=== PATIENT | female | born 1980 | race Caucasian/White ===

== ENCOUNTER 2019-03-04 11:43 | Emergency (ER) | payer SELFPAY ==
[2019-03-04 11:47] VITALS: BP 110/75; PULSE 80; RESP 20; TEMP 36.4; O2SAT 98
--- NOTE | 2019-03-04 12:44 | W.ED.DENTAL ---
HPI - Dental/Oral General: Chief complaint: Dental/Oral Stated complaint: tooth infection Time Seen by Provider: 03/04/19 12:40 History of Present Illness: HPI Narrative: Patient comes in today with complaints of left side upper and lower jaw pain. Patient has poor dentition with multiple caries and loss of teeth. Patient reports increased swelling of the gums and tenderness to them. Patient appears well. Patient appears in mild to moderate pain. Teeth map: 1. absent 2. absent 3. decay Review of Systems General: Reports: 10 or more systems reviewed and unremarkable except in HPI and below ENMT: Reports: dental pain PFSH ED PFSH: Statuses (acute, chronic, etc) shown below reflect problem list status as previously entered and may not be historically accurate Social History Smoking and tobacco status: current every day smoker Physical Exam Const: COMMON NORMALS: no apparent distress and oriented x3 GENERAL APPEARANCE: cooperative HENMT: COMMON NORMALS: normocephalic, external ears normal, EAC's normal, TM's normal bilaterally and external nose normal HEAD & SCALP: normal to inspection and normocephalic FACE & SINUS: normal facial exam NOSE: external nose normal GENERAL EAR: hearing grossly impaired EXTERNAL EAR: Yes external ears normal EXTERNAL AUDITORY CANAL: EAC's normal TYMPANIC MEMBRANE: TM's normal bilaterally MOUTH: oral and palatal mucosa normal TEETH & GINGIVA: Yes abnormal tooth and associated gingiva (multiple caries and tooth decay, redness and inflammed teeth), Yes gingiva abnormal and Yes poor dentition THROAT: posterior oropharynx normal Eye: COMMON NORMALS: PERRL and EOMs intact bilaterally PUPIL: Yes PERRL Neck/C-Spine: COMMON NORMALS: full ROM and no lymphadenopathy Lymph: LYMPHATIC: no lymphedema noted Chest: COMMONS NORMALS: inspection of chest normal and palpation of chest normal Resp: COMMON NORMALS: normal respiratory effort and clear to auscultation bilaterally AUSCULTATION: clear to auscultation bilaterally Cardio: COMMON NORMALS: regular rate and regular rhythm RATE: regular rate RHYTHM: regular rhythm GI: COMMON NORMALS: normal to inspection, nondistended, normoactive bowel sounds and non-tender : COMMON NORMALS: Yes no CVA tenderness BLADDER/KIDNEY EXAM: Yes no CVA tenderness Back/Pelvis: COMMON NORMALS: no CVA tenderness and thoracic and lumbar spine normal to inspection Extremity: COMMON NORMALS: normal to inspection GENERAL: No edema Neuro: COMMON NORMALS: oriented x3, moves all extremities and no focal motor deficits Psych: COMMON NORMALS: mental status grossly normal and cooperative Skin: COMMON NORMALS: no rashes or lesions noted GENERAL SKIN EXAM: no rashes or lesions noted Course Vital Signs: Vital signs: Vital Signs Temperature 97.6 F 03/04/19 11:47 Pulse Rate 80 03/04/19 11:47 Respiratory Rate 20 H 03/04/19 11:47 Blood Pressure 110/75 03/04/19 11:47 Pulse Oximetry 98 03/04/19 11:47 MDM - Dental/Oral MDM Narrative: Medical decision making narrative: Patient comes in today for complaints of left side dental pain. On exam we note swelling and poor dental care. Patient has no obvious or significant swelling of the posterior pharynx, airway is completely intact, and patient handle secretions well. Differential diagnosis includes all dentalgia, dental abscess, dental caries, Oseas's angina, retropharyngeal abscess. Discharge Plan Discharge Patient Disposition: Home, Self-Care Clinical Impression: Dental caries, Toothache Condition: Stable Prescriptions: New clindamycin HCl 150 mg capsule 150 mg PO Q6H 7 Days Qty: 28 RF: 0 hydrocodone-acetaminophen 5-325 mg tablet 1 tab PO Q8H PRN (Reason: pain) Qty: 7 RF: 0 Lidocaine Viscous 2 % solution 10 ml MUCOUS MEM Q4H PRN (Reason: pain) Qty: 100 RF: 0 Discharge Orders: Discharge Order (Routine); Ordered 03/04/19 Ordered By: Akash Walsh Discharge Diet: Usual diet Discharge Activity: Resume usual activity Patient Instructions: Dental Caries (ED), Toothache (ED) Activity Restrictions/Additional Instructions: Good oral care Drink plenty of water with medications Check with [facility] in [place] about dental care Follow-up with primary care for persistent treatment Return to ER for high fever, difficulty swallowing or breathing. Coding Level of Care Code ED Bowling Floor Desk Clerk for Justyna Fernandez Exam Problem Focused
[2019-03-04 13:01] VITALS: BP 110/76; PULSE 80; RESP 18; TEMP 37; O2SAT 98
== END 2019-03-04 13:03 | disposition home or self-care (01) ==
LOC: ER 16:28
PROVIDERS: Emergency Provider Nurse Practitioner Family
DX: K02.9 Dental caries, unspecified (principal); F17.210 Nicotine dependence, cigarettes, uncomplicated
CPT/HCPCS: 99281

== ENCOUNTER 2019-04-14 18:39 | Emergency (ER) | payer SELFPAY ==
[2019-04-14 18:43] VITALS: BP 116/64; PULSE 101; RESP 18; TEMP 36.6; O2SAT 98; BMI 23.6
--- NOTE | 2019-04-14 18:48 | XR_ITS ---
WS: [id number] XR chest 1V portable [id number] REASON FOR EXAM: cough FINDINGS: The heart and mediastinal interfaces are normal. The lung ruth are well-aerated. There is no pneumonia, pleural effusion, pulmonary edema, or mass e ffect. The hilum and apices are normal. No osseous abnormalities seen. XR/XR chest 1V portable [id number] IMPRESSION: Negative chest for acute findings.
[2019-04-14 18:49] VITALS: BP 109/67; PULSE 96; RESP 17; TEMP 36.4; O2SAT 98
--- NOTE | 2019-04-14 19:05 | ED_ITS ---
HPI - SOB/Dyspnea General: Chief Complaint: Shortness of Breath/Dyspnea Stated Complaint: flu s/s Time Seen by Provider: 04/14/19 18:52 History of Present Illness: HPI Narrative: Patient comes in today with cough and congestion for 3 days. Patient also concerned about her hepatitis C. Patient appears mildly unwell. Patient appears nonjaundiced. Patient appears in mild pain. MD elicited complaint: cough Review of Systems General: Reports: 10 or more systems reviewed and unremarkable except in HPI and below Const: Reports: chills and malaise Resp: Reports: non-productive cough PFSH ED PFSH: Social History Smoking and tobacco status: current every day smoker Physical Exam Const: COMMON NORMALS: no apparent distress and oriented x3 GENERAL APPEARANCE: cooperative HENMT: COMMON NORMALS: normocephalic, external ears normal, EAC's normal, TM's normal bilaterally and external nose normal HEAD & SCALP: normal to inspection and normocephalic FACE & SINUS: normal facial exam NOSE: external nose normal GENERAL EAR: hearing not grossly impaired EXTERNAL EAR: Yes external ears normal EXTERNAL AUDITORY CANAL: EAC's normal TYMPANIC MEMBRANE: TM's normal bilaterally MOUTH: oral and palatal mucosa normal THROAT: posterior oropharynx abnormal erythema Eye: COMMON NORMALS: PERRL and EOMs intact bilaterally PUPIL: Yes PERRL Neck/C-Spine: COMMON NORMALS: full ROM and no lymphadenopathy Lymph: LYMPHATIC: no lymphedema noted Chest: COMMONS NORMALS: inspection of chest normal and palpation of chest nor mal Resp: COMMON NORMALS: normal respiratory effort and clear to auscultation bilaterally AUSCULTATION: clear to auscultation bilaterally Cardio: COMMON NORMALS: regular rate and regular rhythm RATE: regular rate RHYTHM: regular rhythm GI: COMMON NORMALS: normal to inspection, nondistended, normoactive bowel sounds and non-tender : COMMON NORMALS: Yes no CVA tenderness BLADDER/KIDNEY EXAM: Yes no CVA tenderness Back/Pelvis: COMMON NORMALS: no CVA tenderness and thoracic and lumbar spine normal to inspection Extremity: COMMON NORMALS: normal to inspection GENERAL: No edema Neuro: COMMON NORMALS: oriented x3, moves all extremities and no focal motor deficits Psych: COMMON NORMALS: mental status grossly normal and cooperative Skin: COMMON NORMALS: no rashes or lesions noted GENERAL SKIN EXAM: no rashes or lesions noted Course Vital Signs: Vital signs: Vital Signs Temperature 97.5 F L 04/14/19 18:49 Pulse Rate 96 04/14/19 18:49 Respiratory Rate 17 04/14/19 18:49 Blood Pressure 109/67 04/14/19 18:49 Pulse Oximetry 98 04/14/19 18:49 MDM - SOB/Dyspnea MDM Narrative: Medical decision making narrative: Patient comes in today with complaints of cough and body aches for last 3 days. Exam notes good air mo vement throughout lung ruth with some mild bronchovascular noise. Abdomen soft nontender. Skin is warm and dry. Vital signs were normal. Differential diagnosis includes influenza, bronchitis, pneumonia. Chest x-ray noted no pneumonia. Flu test was negative. Reviewed exam with patient recommended treatment for bronchitis. Patient was given a dose of dexamethasone and will be started on doxycycline. Patient was written Promethazine DM to help with cough and given ondansetron for nausea. Patient reports understanding of care plan and need for follow-up. Lab Data: Labs: Lab Results 04/14/19 Range/Units 18:47 Influenza Type A A g Negative (Negative) POC Influenza B Ag Negative (Negative) Discharge Plan Discharge Patient Disposition: Home, Self-Care Clinical Impression: Bronchitis Condition: Stable Prescriptions: New promethazine-DM 6.25-15 mg/5 mL syrup 5 ml PO Q6H PRN (Reason: cough) Qty: 120 RF: 0 ondansetron HCl 4 mg tablet 4 mg PO Q8H PRN (Reason: nausea and vomiting) Qty: 7 RF: 0 doxycycline hyclate 100 mg capsule 100 mg PO BID 7 Days Qty: 14 RF: 0 No Action hydrocodone-acetaminophen 5-325 mg tablet 1 tab PO Q8H PRN (Reason: pain) Qty: 7 RF: 0 Lidocaine Viscous 2 % solution 10 ml MUCOUS MEM Q4H PRN (Reason: pain) Qty: 100 RF: 0 Discharge Orders: Discharge Order (Routine); Ordered 04/14/19 Ordered By: Akash Walsh Discharge Diet: Usual diet Discharge Activity: Increase activity as tolerated Patient Instructions: Acute Bronchitis (ED) Activity Restrictions/Additional Instructions: Drink plenty of fluids Activity as tolerated Stop smoking Medications as directed Follow-up with primary care in one week Coding Level of Care Code ED Cnc Service Technician for Chg Fwd Exam Comprehensive
[2019-04-14 19:18] LABS: Influenza A by IFA Negative (Negative); Influenza B by IFA Negative (Negative)
[2019-04-14] MEDS: ondansetron 4 MG Tablet PO (20:11)
[2019-04-14] MEDS: dexamethasone 10 mg/mL INJ IM (20:11)
[2019-04-14] MEDS: doxycycline 100 mg Tablet PO (20:11)
[2019-04-14 20:14] VITALS: BP 110/63; PULSE 95; RESP 17; TEMP 36.3; O2SAT 94
[2019-04-14 20:19] VITALS: BP 110/63; PULSE 95; RESP 17; TEMP 36.3; O2SAT 94
--- NOTE | 2019-04-15 15:11 | DCPLANNER ---
sourcing manager had message to speak with patient about getting a primary care physician. sourcing manager called patient, unable to speak with patient at this time, and unable to leave a voice mail for patient at this time. sourcing manager called and a recording stated that patient was unavailable at this time.
== END 2019-04-14 20:40 | disposition home or self-care (01) ==
PROVIDERS: Emergency Medicine; Emergency Provider Nurse Practitioner Family
DX: J40 Bronchitis, not specified as acute or chronic (principal); F17.200 Nicotine dependence, unspecified, uncomplicated
CPT/HCPCS: 71045; 87804; 96372; 99282; 99283; J1100; Q0162

== ENCOUNTER 2019-12-06 11:08 | Emergency (ER) | payer SELFPAY ==
[2019-12-06 11:20] VITALS: BP 102/65; PULSE 114; RESP 20; TEMP 38.5; O2SAT 95; BMI 22.6
--- NOTE | 2019-12-06 11:59 | XR_ITS ---
WS: [id number] PORTABLE CHEST HISTORY: syncope COMPARISON: 04/14/2019 Subtle area of haziness and increasing opacification in the central LEFT lung. Otherwise lungs are cl ear. Normal vasculature. No pleural effusion or pneumothorax. Cardiac size: Normal. Mediastinum/Aorta: Normal mediastinum. No osseous abnormality seen. XR/XR chest 1V portable [id number] IMPRESSION: Central LEFT lung developing pneumonitis.
[2019-12-06] MEDS: sodium chloride 0.9% 500 ML 999 ML IV (12:32)
[2019-12-06 12:52] VITALS: BP 106/71; PULSE 97; RESP 20; O2SAT 98
--- NOTE | 2019-12-06 13:00 | ED_ITS ---
HPI - COVID General: Chief Complaint: COVID symptoms Stated Complaint: fever, possible covid Time Seen by Provider: 12/06/19 11:50 Triage information: Has fever, cough or shortness of breath . No known COVID + exposure last 14 days History of Present Illness: HPI Narrative: 39-year-old female patient presents to the emergency department with complaints of fever, chills, body aches and hurting all over She reports currently on Keflex for dental abscess/pain past 5 days. She reports her spouse has been ill as well. MD complaint: has COVID symptoms Prior covid testing: no COVID 19 common symptoms: positive fever(s), chills, cough, non-productive cough, dyspnea, body aches, headache(s), throat pain, nasal congestion, nausea and vomiting; negative diarrhea COVID 19 other sytmptoms: negative chest pain Onset (ago): day(s) (4) Severity: moderate and rapidly worsening Treatment prior to arrival: acetaminophen COVID Results: SARS-CoV-2 RNA (RT-PCR) Pending 12/06/19 15:39 12/06/19 Nasal/Oral Coronavirus 2019 PCR Pending 12/06/19 12:50 12/06/19 Review of Systems General: Reports: 10 or more systems reviewed and unremarkable except in HPI and below Const: Reports: fever(s), chills and body aches Eyes: Denies: blurry vision or eye redness ENMT: Reports: throat pain, ear or mastoid pain and nasal congestion; Denies: dental pain or disequilibrium Card: Denies: chest pain, palpitations or irregular heart rhythm Resp: Reports: dyspnea, non-productive cough and chest congestion GI: Reports: nausea and vomiting; Denies: heartburn or diarrhea : Denies: difficulty voiding or dysuria Musc: Denies: back pain Skin/Breast: Denies: rash or pruritus Neuro: Reports: headache(s) Darrius/Lymph: Denies: easy bruising PFS ED PFSH: Social History Smoking and tobacco status: current every day smoker Physical Exam Const: COMMON NORMALS: no acute distress, patient oriented x3 and alert GENERAL APPEARANCE: cooperative and ill appearing NUTRITIONAL APPEARANCE: thin ORIENTATION/CONSCIOUSNESS: Yes awake, Yes oriented to person, Yes oriented to place and Yes oriented to time HENMT: COMMON NORMALS: normocephalic, external ears normal, EAC's normal, Normal external nose present and moist oral mucous membranes HEAD & SCALP: normocephalic FACE & SINUS: normal facial exam and sinuses nontender NOSE: Normal external nose present EXTERNAL EAR: Yes external ears normal EXTERNAL AUDITORY CANAL: EAC's normal MOUTH: Normal oral and palatal mucosa present THROAT: posterior oropharynx normal Eye: COMMON NORMALS: Equal, round and reactive pupils present and EOMs intact bilaterally GENERAL EYE: appearance normal, both eyes and all related structures PUPIL: Yes Equal, round and reactive pupils present Neck/C-Spine: COMMON NORMALS: full ROM and no lymphadenopathy GENERAL: Yes normal visual inspection and Yes trachea midline CERVICAL SPINE: Yes cervical ROM normal, No Cervical spine tenderness and No Paracervical muscle tenderness Lymph: LYMPHATIC: no lymphadenopathy noted Chest: COMMONS NORMALS: normal inspection of the chest Resp: COMMON NORMALS: normal respiratory effort EFFORT & INSPECTION: Yes able to speak in complete sentences and No tachypneic AUSCULTATION: diminished lung sounds (bases) bilateral Cardio: COMMON NORMALS: regular rhythm, S1 normal heart sound present, S2 normal heart sound present and Peripheral pulses 2+ throughout RHYTHM: regular rhythm HEART SOUNDS: S1 normal heart sound present and S2 normal heart sound present PERIPHERAL PULSES: Peripheral pulses 2+ throughout GI: COMMON NORMALS: Soft to palpation and non-tender INSPECTION: Yes normal to inspection PALPATION: Yes Soft to palpation : COMMON NORMALS: Yes no CVA tenderness BLADDER/KIDNEY EXAM: Yes no CVA tenderness Back/Pelvis: COMMON NORMALS: no CVA tenderness and thoracic and lumbar spine normal to inspection Extremity: COMMON NORMALS: normal to inspection and capillary refill normal Neuro: COMMON NORMALS: patient oriented x3 and no focal motor deficits SENSORIUM/ORIENTATION: Yes alert, Yes oriented to person, Yes oriented to place and Yes oriented to time Psych: COMMON NORMALS: mental status grossly normal, Normal thought process present and cooperative ACTIVITY/MOTOR BEHAVIOR: Yes appropriate eye contact THOUGHT PROCESS: Normal thought process present Skin: COMMON NORMALS: no rashes or lesions noted and turgor normal GENERAL SKIN EXAM: no rashes or lesions noted and turgor normal Course ED course: 39-year-old female patient presents to the emergency department with COVID symptoms. Chest x-ray revealed left upper lobe pneumonitis. COVID results are pending at this time. She was able to tolerate oral fluids. IV Tylenol administered with good results, she reports pain/discomfort improved, states was feeling better. Fever resolved, she will be placed on doxycycline, Tessalon Perles and Ventolin inhaler for infectious process. She agrees to follow-up with primary care provider in 2 to 3 days for reevaluation. Agrees to return to the emergency department for worsening symptoms such as difficulty breathing, inability to catch her breath or chest pain. She is advised to push fluid, stay at home and quarantine until results of COVID testing is available. She verbalized understanding. Case discussed with Dr. Avalos, chest x-ray does not appear as COVID, patient maintained oxygen saturation greater than 97% during her stay, she is advised to purchase oxygen sensor at the pharmacy and monitor her oxygen saturation at home. Patient verbalized understanding. Questions were answered, findings of chest x-ray and serology testing discussed with the patient. Vital Signs: Vital signs: Vital Signs Temperature 98.9 F 12/06/19 15:49 Pulse Rate 102 H 12/06/19 15:49 Respiratory Rate 20 H 12/06/19 15:49 Blood Pressure 106/64 12/06/19 15:49 Pulse Oximetry 97 12/06/19 15:49 MDM - COVID Lab Data Result diagrams: 12/06/19 12:50 12/06/19 12:50 Labs: Lab Results 12/06/19 12/06/19 12/06/19 Range/Units 12:50 12:50 12:50 WBC 15.4 H (4.0-10.0) 10^3/uL RBC 3.95 L (4.1-5.3) 10^6/uL Hgb 12.8 (11.5-15.3) g/dL Hct 38.0 (37.0-47.0) % MCV 96.2 (81-99) fL MCH 32.4 (28.0-34.0) pg MCHC 33.7 (30.0-36.0) g/dL RDW 13.7 (12.1-15.1) % Plt Count 241 (130-400) 10^3/cmm MPV 10.2 (7.4-10.4) fL Neut % (Auto) 76.3 % Lymph % (Auto) 13.2 % Collier % (Auto) 9.6 % Eos % (Auto) 0.1 % Baso % (Auto) 0.3 % Neut # (Auto) 11.76 H (1.8-7.7) 10^3/uL Lymph # (Auto) 2.0 (0.8-4.8) 10^3/uL Collier # (Auto) 1.5 H (0.2-0.9) 10^3/uL Eos # (Auto) 0.0 (0.0-0.8) 10^3/uL Baso # (Auto) 0.0 (0.0-0.1) 10^3/uL Nucleated RBC % (auto) 0 % Nucleated RBCs # 0.0 /100WBC D-Dimer 0.29 (0-0.59) ug/mIFEU Sodium 137 (136-145) mmol/L Potassium 3.8 (3.5-5.1) mmol/L Chloride 103 (98-107) mmol/L Carbon Dioxide 23 (22-29) mmol/L Anion Gap 14.8 (5-19) BUN 6 (6-20) mg/dL Creatinine 0.5 (0.5-0.9) mg/dL GFR Calculation 138.8 H (90-130) mL/min Glucose 114 (65-115) mg/dL Calculated Osmolality 282 L (285-295) mOsm/kg Lactate (0.5-2.2) mmol/L Calcium 9.3 (8.5-10.5) mg/dL Total Bilirubin 0.4 (0.15-1.2) mg/dL AST 30 (0-32) U/L ALT 91 H (0-33) U/L Alkaline Phosphatase 64 (35-105) IU/L Total Protein 7.3 (6.6-8.7) g/dL Albumin 4.1 (3.5-5.2) g/dL Globulin 3.2 (1.3-4.6) g/dL HCG, Qual (Negative) SARS-CoV-2 Ag (Rapid) 12/06/19 12/06/19 12/06/19 Range/Units 12:50 12:50 Unknown WBC (4.0-10.0) 10^3/uL RBC (4.1-5.3) 10^6/uL Hgb (11.5-15.3) g/dL Hct (37.0-47.0) % MCV (81-99) fL MCH (28.0-34.0) pg MCHC (30.0-36.0) g/dL RDW (12.1-15.1) % Plt Count (130-400) 10^3/cmm MPV (7.4-10.4) fL Neut % (Auto) % Lymph % (Auto) % Collier % (Auto) % Eos % (Auto) % Baso % (Auto) % Neut # (Auto) (1.8-7.7) 10^3/uL Lymph # (Auto) (0.8-4.8) 10^3/uL Collier # (Auto) (0.2-0.9) 10^3/uL Eos # (Auto) (0.0-0.8) 10^3/uL Baso # (Auto) (0.0-0.1) 10^3/uL Nucleated RBC % (auto) % Nucleated RBCs # /100WBC D-Dimer (0-0.59) ug/mIFEU Sodium (136-145) mmol/L Potassium (3.5-5.1) mmol/L Chloride (98-107) mmol/L Carbon Dioxide (22-29) mmol/L Anion Gap (5-19) BUN (6-20) mg/dL Creatinine (0.5-0.9) mg/dL GFR Calculation (90-130) mL/min Glucose (65-115) mg/dL Calculated Osmolality (285-295) mOsm/kg Lactate 0.6 (0.5-2.2) mmol/L Calcium (8.5-10.5) mg/dL Total Bilirubin (0.15-1.2) mg/dL AST (0-32) U/L ALT (0-33) U/L Alkaline Phosphatase (35-105) IU/L Total Protein (6.6-8.7) g/dL Albumin (3.5-5.2) g/dL Globulin (1.3-4.6) g/dL HCG, Qual Negative (Negative) SARS-CoV-2 Ag (Rapid) Cancelled COVID Results: SARS-CoV-2 RNA (RT-PCR) Pending 12/06/19 15:39 12/06/19 Nasal/Oral Coronavirus 2019 PCR Pending 12/06/19 12:50 12/06/19 Imaging Data CXR: Radiologist's impression: [address] [address] XRay Report Signed Patient: Frances Parr Unit #: [id number] : 1980 Age/Sex: 39 / F ADM Date: 12/06/19 Loc: ER Room/Bed: Attending Dr: Ordering Provider/Ordering MD: Brenna Reed Date of Service: 12/06/19 Procedure(s): XR chest 1V portable [id number] Accession Number(s): [id number] Report Number: [id number] WS: [id number] PORTABLE CHEST HISTORY: syncope COMPARISON: 04/14/2019 Subtle area of haziness and increasing opacification in the central LEFT lung. Otherwise lungs are clear. Normal vasculature. No pleural effusion or pneumothorax. Cardiac size: Normal. Mediastinum/Aorta: Normal mediastinum. No osseous abnormality seen. XR/XR chest 1V portable [id number] IMPRESSION: Central LEFT lung developing pneumonitis. Dictated By: Elly Thacker DO Signed By: Elly Thacker DO Signed Date/Time: 12/06/19 1309 DD/ 1308 Discharge Plan Discharge Patient Disposition: Home Clinical Impression: Suspected severe acute respiratory syndrome coronavirus 2 (SARS-CoV-2) i nfection, Suspected 2019-nCoV infection Pneumonia Qualifiers: Pneumonia type: due to unspecified organism Laterality: left Lung location: upper lobe of lung Qualified Code(s): J18.9 - Pneumonia, unspecified organism Condition: Stable Prescriptions: New Ventolin HFA 90 mcg/actuation HFA aerosol inhaler 2 puff INHALATION Q4H PRN (Reason: shortness of breath or wheezing) Qty: 18 RF: 0 doxycycline hyclate 100 mg tablet 100 mg PO BID 10 Days Qty: 20 RF: 0 benzonatate 200 mg capsule 200 mg PO TID PRN (Reason: cough) Qty: 20 RF: 0 Discharge Orders: Discharge Order (Routine); Ordered 12/06/19 Ordered By: Brenna Reed Discharge Diet: Advance as tolerated Discharge Activity: Limit activity as instructed Patient Instructions: Pneumonia (ED), Pneumonia - Viral Activity Restrictions/Additional Instructions: COVID testing is pending -you will be of covered results Return to the emergency department if you develop worsening shortness of breath, inability to catch her breath, fever that does not respond to Tylenol, or inability to tolerate fluids due to vomiting. Take doxycycline until all gone even if feeling better. Follow-up with your primary care provider in 2 to 3 days to ensure you are feeling better You may purchase an ecap-yuj-[id number] oxygen sensor to test her oxygen, normal findings are greater than 92% Return to the emergency department if your oxygen level drops below 90 to 92%. Push fluids, your body will require more fluids to help control fever Stop Keflex/cephalexin Discharge Date/Time: 12/06/19 15:51 Coding Level of Care Code ED Landscape Technician for Justyna Fernandez Exam Comprehensive
[2019-12-06 13:02] LABS: Basophils % 0.3 %; Eosinophils % 0.1 %; Hemoglobin 12.8 g/dL (11.5-15.3); Lymphocytes % 13.2 %; Mean Corpuscular HGB Conc 33.7 g/dL (30.0-36.0); Mean Corpuscular Hemoglobin 32.4 pg (28.0-34.0); Mean Corpuscular Volume 96.2 fL (81-99); Mean Platelet Volume 10.2 fL (7.4-10.4); Monocytes # 1.5 10^3/uL (0.2-0.9); Monocytes % 9.6 %; Neutrophils # 11.76 10^3/uL (1.8-7.7); Neutrophils % 76.3 %; Nucleated Red Blood Cells % 0 %; Platelet Count 241 10^3/cmm (130-400); Red Blood Count 3.95 10^6/uL (4.1-5.3); Red Cell Distribution Width 13.7 % (12.1-15.1); White Blood Count 15.4 10^3/uL (4.0-10.0)
[2019-12-06 13:13] VITALS: BP 102/68; PULSE 96; RESP 20; O2SAT 98
[2019-12-06 13:13] LABS: D Dimer 0.29 ug/mIFEU (0-0.59)
[2019-12-06 13:15] LABS: HCG, Serum Qual Negative (Negative)
[2019-12-06 13:17] LABS: Lactate (Lactic Acid level) 0.6 mmol/L (0.5-2.2)
[2019-12-06 14:05] LABS: Alanine Aminotransferase 91 U/L (0-33); Albumin Level 4.1 g/dL (3.5-5.2); Alkaline Phosphatase 64 IU/L (35-105); Anion Gap 14.8 (5-19); Aspartate Amino Transferase 30 U/L (0-32); Blood Urea Nitrogen 6 mg/dL (6-20); Calcium 9.3 mg/dL (8.5-10.5); Carbon Dioxide 23 mmol/L (22-29); Chloride 103 mmol/L (98-107); Globulin 3.2 g/dL (1.3-4.6); Glomerular Filtration Rate 138.8 mL/min (90-130); Glucose 114 mg/dL (65-115); Osmolality Calculated 282 mOsm/kg (285-295); Potassium 3.8 mmol/L (3.5-5.1); Sodium 137 mmol/L (136-145); Total Bilirubin 0.4 mg/dL (0.15-1.2); Total Protein 7.3 g/dL (6.6-8.7)
[2019-12-06 14:09] VITALS: BP 101/61; PULSE 99; RESP 20; O2SAT 98
--- NOTE | 2019-12-06 14:27 | PC.NURSE ---
Read and agree with assessment.
[2019-12-06 15:49] VITALS: BP 106/64; PULSE 102; RESP 20; TEMP 37.2; O2SAT 97
--- NOTE | 2019-12-07 08:44 | DCPLANNER ---
vegetable farm manager had message to speak with patient about getting established with a primary care physician. vegetable farm manager called phone number , was unable to speak with patient at this time, or unable to leave a voicemail for patient. A recording stated that the phone number that was called is not taking phone calls at this time.
[2019-12-07 20:08] LABS: Quest SARS-CoV-2 RNA NOT DETECTED (NOT DETECTED)
[2019-12-07 20:26] LABS: Coronavirus Lab Test PTC Negative
== END 2019-12-06 15:51 | disposition home or self-care (01) ==
PROVIDERS: Emergency Provider Nurse Practitioner Family
DX: J18.9 Pneumonia, unspecified organism (principal); F17.210 Nicotine dependence, cigarettes, uncomplicated
CPT/HCPCS: 12345; 71045; 80053; 83605; 84703; 85025; 85378; 87635; 96374; 99284; J0131; J7040

== ENCOUNTER 2020-06-30 21:11 | Inpatient (IN) | payer SELFPAY ==
[2020-06-30] VITALS (12 sets, daily range): BP systolic 97–121; BP diastolic 49–78; PULSE 128–135; RESP 16–34; TEMP 37.3–39.6; O2SAT 83–98; BMI 23.6
[2020-06-30] MEDS: LORazepam 2 mg/mL INJ 1 mL IM (21:36)
--- NOTE | 2020-06-30 21:43 | XRR_ITS ---
PROCEDURE INFORMATION: Exam: XR Chest Exam date and time: 06/30/2020 9:47 PM Age: 40 years old Clinical indication: Fever TECHNIQUE: Imaging protocol: XR of the chest. Views: 1 view. COMPARISON: [place] XR chest 1V portable [id number] 12/06/2019 1:00 PM FINDINGS: Lungs: There are multiple calcified pulmonary nodules consistent with prior granulomatous disease. Pleural spaces: Unremarkable. No pleural effusion. No pneumothorax. Heart/Mediastinum: Unremarkable. No cardiomegaly. Bones/joints: Unremarkable. XR/XR chest 1V portable [id number] IMPRESSION: No acute disease.
--- NOTE | 2020-06-30 21:45 | ECG_ITS ---
[facility] Test Date: 2020-06-30 Pat Name: Frances Parr Department: Room: Gender: Female [employer]: : 1980 Requested By: Jose Alfredo Tang Order Number: [id number] Rico MD: Zuly Doty M.D. Measurements Intervals [place] Rate: 127 P: 67 IN: 116 QRS: 47 QRSD: 84 T: 56 QT: 301 QTc: 438 Interpretive Statements SINUS TACHYCARDIA WITH SHORT IN INTERVAL ABNORMAL RHYTHM ECG No previous ECG available for comparison Electronically Signed On 07-02-2020 12:09:34 CDT by Zuly Doty M.D. [id number]
[2020-06-30] MEDS: LORazepam 2 mg/mL INJ 1 mL 0.5 MG IM (21:49)
[2020-06-30 21:52] LABS: Basophils # 0.1 10^3/uL (0.0-0.1); Basophils % 0.4 %; Hematocrit 48.7 % (37.0-47.0); Hemoglobin 14.8 g/dL (11.5-15.3); Lymphocytes # 3.8 10^3/uL (0.8-4.8); Lymphocytes % 21.9 %; Mean Corpuscular HGB Conc 30.4 g/dL (30.0-36.0); Mean Corpuscular Hemoglobin 32.8 pg (28.0-34.0); Mean Platelet Volume 10.1 fL (7.4-10.4); Monocytes # 1.9 10^3/uL (0.2-0.9); Monocytes % 11.1 %; Neutrophils # 11.54 10^3/uL (1.8-7.7); Neutrophils % 66.2 %; Nucleated Red Blood Cells % 0 %; Platelet Count 204 10^3/cmm (130-400); Red Blood Count 4.51 10^6/uL (4.1-5.3); Red Cell Distribution Width 13.8 % (12.1-15.1); White Blood Count 17.4 10^3/uL (4.0-10.0)
[2020-06-30] MEDS: acetaminophen 325 mg Tablet 650 MG PO (21:58)
[2020-06-30] MEDS: ondansetron 2 mg/ML SDV 2 mL 4 MG IVP (21:58)
[2020-06-30] MEDS: sodium chloride 0.9% 1,000 ML 999 ML IV ×2 (21:59→23:42)
[2020-06-30 22:00] LABS: HCG, Serum Qual Negative (Negative)
[2020-06-30 22:08] LABS: Lactate (Lactic Acid level) 6.7 mmol/L (0.5-2.2)
[2020-06-30 22:20] LABS: Alanine Aminotransferase 85 U/L (0-33); Albumin Level 4.4 g/dL (3.5-5.2); Alkaline Phosphatase 78 IU/L (35-105); Aspartate Amino Transferase 50 U/L (0-32); Blood Urea Nitrogen 11 mg/dL (6-20); Calcium 9.1 mg/dL (8.5-10.5); Carbon Dioxide 23 mmol/L (22-29); Chloride 94 mmol/L (98-107); Globulin 3.9 g/dL (1.3-4.6); Glomerular Filtration Rate 80.3 mL/min (90-130); Glucose 115 mg/dL (65-115); Osmolality Calculated 276 mOsm/kg (285-295); Sodium 133 mmol/L (136-145); Total Bilirubin 0.3 mg/dL (0.15-1.2); Total Protein 8.3 g/dL (6.6-8.7)
[2020-06-30 22:24] LABS: Acetaminophen < 5.0 ug/mL (10-30); Alcohol Level < 10 mg/dL (0-10); Anion Gap 20.6 (5-19); Potassium 4.6 mmol/L (3.5-5.1); Salicylate < 0.3 mg/dL (3-10)
[2020-06-30 22:25] LABS: Creatine Phosphokinase 330 U/L (26-192)
[2020-06-30 22:48] LABS: Influenza A by IFA Negative (Negative); Influenza B by IFA Negative (Negative); SARS Covid-2 Antigen Negative (Negative)
--- NOTE | 2020-06-30 23:02 | ED_ITS ---
HPI - Fever General: Chief Complaint: Fever Stated Complaint: fever and general body ache Time Seen by Provider: 06/30/20 21:15 History of Present Illness: HPI Narrative: 40-year-old female who evidently ingested an unknown substance last night. Today she developed a fever, body aches, and headache. She is a poor historian, and will report much otherwise. She presents asking for her mama. elicited complaint: fever Onset (ago): hour(s) Measured temperature: 103 F Exacerbating factors: nothing Relieving factors: nothing Associated symptoms: Reports chills, cough, headache(s), nausea and short of breath; Deny flank pain, chest pain, diarrhea, rash or vomiting Review of Systems Const: Reports: chills Card: Denies: chest pain or palpitations Resp: Reports: dyspnea and non-productive cough; Denies: productive cough GI: Reports: nausea; Denies: vomiting or diarrhea : Denies: flank pain or difficulty voiding Neuro: Reports: headache(s) PFS ED PFSH: Social History Smoking and tobacco status: current every day smoker Physical Exam Const: GENERAL APPEARANCE: well developed ORIENTATION/CONSCIOUSNESS: Yes oriented to person, Yes oriented to place and Yes oriented to time HENMT: COMMON NORMALS: normocephalic and external ears normal HEAD & SCALP: normocephalic EXTERNAL EAR: Yes external ears normal MOUTH: tongue normal TEETH & GINGIVA: Yes abnormal tooth and associated gingiva THROAT: posterior oropharynx normal; no peritonsillar mass Eye: COMMON NORMALS: Equal, round and reactive pupils present, EOMs intact bilaterally and conjunctivae normal EYELID: eyelids normal CONJUNCTIVA: Yes conjunctivae normal PUPIL: Yes Equal, round and reactive pupils present Neck/C-Spine: GENERAL: No tracheal deviation Chest: COMMONS NORMALS: normal inspection of the chest CHEST: No tenderness Resp: COMMON NORMALS: clear to auscultation bilaterally EFFORT & INSPECTION: No tachypneic, No respiratory distress, No retractions, No uses accessory muscles and No tracheal deviation AUSCULTATION: clear to auscultation bilaterally, no rhonchi, no wheezes and lung sounds not diminished Cardio: COMMON NORMALS: regular rate and regular rhythm RATE: regular rate RHYTHM: regular rhythm HEART SOUNDS: no murmurs PERIPHERAL PULSES: radial pulses present GI: INSPECTION: No abdominal distension AUSCULTATION: No Hyperactive bowel sounds present and No Hypoactive bowel sounds present PALPATION: No Guarding due to palpation present (GI) and No Rigid due to palpation PERCUSSION: no dullness to percussion and no tympanic to percussion Neuro: SENSORIUM/ORIENTATION: Yes oriented to person, Yes oriented to place and Yes oriented to time Psych: COMMON NORMALS: mental status grossly normal Skin: COMMON NORMALS: no rashes or lesions noted GENERAL SKIN EXAM: no rashes or lesions noted Course Consultations: Consultation #1: logan Vital Signs: Vital signs: Vital Signs Temperature 99.2 F 06/30/20 23:38 Pulse Rate 116 H 07/01/20 01:15 Respiratory Rate 21 H 07/01/20 01:15 Blood Pressure 98/53 07/01/20 01:15 Pulse Oximetry 92 07/01/20 01:15 MDM - Fever MDM Narrative: Medical decision making narrative: 40-year-old female with ingestion of an unknown substance yesterday. She has a significant fever with body aches. She is a difficult IV stick. She has a history of IV drug abuse she says in the distant past. White blood cell count is 17.4. Essentially normal differential. Her CK is mildly elevated. Her CRP is 65, her lactate is 6.7. She has been tachycardic since arrival. Heart rate has remained 130. Blood pressure 106/69. Swabs for flu and COVID-19 rapid and are negative. Her chest x-ray is negative. She is getting 2 L of fluid currently. She complains of a headache, so CT of the head has been ordered. She was given Ativan for anx iety. Clear source not definitely identified. Blood cultures are pending. She will be given broad-spectrum antibiotics, admitted to the hospital. Lab Data: Labs: Lab Results 06/30/20 06/30/20 06/30/20 Range/Units 21:35 21:35 21:35 WBC 17.4 H (4.0-10.0) 10^3/ uL RBC 4.51 (4.1-5.3) 10^6/u L Hgb 14.8 (11.5-15.3) g/dL Hct 48.7 H (37.0-47.0) % MCV 108.0 H (81-99) fL MCH 32.8 (28.0-34.0) pg MCHC 30.4 (30.0-36.0) g/dL RDW 13.8 (12.1-15.1) % Plt Count 204 (130-400) 10^3/c mm MPV 10.1 (7.4-10.4) fL Neut % (Auto) 66.2 % Lymph % (Auto) 21.9 % Hitchcock % (Auto) 11.1 % Eos % (Auto) 0.0 % Baso % (Auto) 0.4 % Neut # (Auto) 11.54 H (1.8-7.7) 10^3/u L Lymph # (Auto) 3.8 (0.8-4.8) 10^3/u L Hitchcock # (Auto) 1.9 H (0.2-0.9) 10^3/u L Eos # (Auto) 0.0 (0.0-0.8) 10^3/u L Baso # (Auto) 0.1 (0.0-0.1) 10^3/u L Nucleated RBC % (a uto) 0 % Nucleated RBCs # 0.0 /100WBC Sodium 133 L (136-145) mmol/L Potassium 4.6 (3.5-5.1) mmol/L Chloride 94 L (98-107) mmol/L Carbon Dioxide 23 (22-29) mmol/L Anion Gap 20.6 H (5-19) BUN 11 (6-20) mg/dL Creatinine 0.8 (0.5-0.9) mg/dL GFR Calculation 80.3 L (90-130) mL/min Glucose 115 (65-115) mg/dL Calculated Osmolal ity 276 L (285-295) mOsm/k g Lactate 6.7 H* (0.5-2.2) mmol/L Calcium 9.1 (8.5-10.5) mg/dL Total Bilirubin 0.3 (0.15-1.2) mg/dL AST 50 H (0-32) U/L ALT 85 H (0-33) U/L Alkaline Phosphata se 78 (35-105) IU/L Creatine Kinase 330 H* (26-192) U/L C-Reactive Protein 65.0 H (0.0-4.9) mg/L Total Protein 8.3 (6.6-8.7) g/dL Albumin 4.4 (3.5-5.2) g/dL Globulin 3.9 (1.3-4.6) g/dL HCG, Qual (Negative) Urine Color (Yellow) Urine Appearance (CLEAR) Urine pH (5-7) Ur Specific Gravit y (1.005-1.030) Urine Protein (Negative) Urine Glucose (UA) (Normal) Urine Ketones (Negative) Urine Blood (Negative) Urine Nitrate (Negative) Urine Bilirubin (Negative) Urine Urobilinogen (Negative) mg/dL Ur Leukocyte Silvina ase (Negative) Salicylates < 0.3 L (3-10) mg/dL Urine Opiates Scre en (Negative) ng/mL Acetaminophen < 5.0 L (10-30) ug/mL Ur Barbiturates Sc reen (Negative) ng/mL Ur Phencyclidine S crn (Negative) ng/mL Ur Amphetamines Sc reen (Negative) ng/mL U Benzodiazepines Scrn (Negative) ng/mL Urine Cocaine Scre en (Negative) ng/mL U Marijuana (THC) Screen (Negative) ng/mL Ethyl Alcohol < 10 (0-10) mg/dL Influenza Type A A g (Negative) Influenza Type B A g (Negative) SARS-CoV-2 Ag (Rap id) (Negative) 06/30/20 06/30/20 06/30/20 Range/Units 21:35 22:14 22:14 WBC (4.0-10.0) 10^3/ uL RBC (4.1-5.3) 10^6/u L Hgb (11.5-15.3) g/dL Hct (37.0-47.0) % MCV (81-99) fL MCH (28.0-34.0) pg MCHC (30.0-36.0) g/dL RDW (12.1-15.1) % Plt Count (130-400) 10^3/c mm MPV (7.4-10.4) fL Neut % (Auto) % Lymph % (Auto) % Hitchcock % (Auto) % Eos % (Auto) % Baso % (Auto) % Neut # (Auto) (1.8-7.7) 10^3/u L Lymph # (Auto) (0.8-4.8) 10^3/u L Hitchcock # (Auto) (0.2-0.9) 10^3/u L Eos # (Auto) (0.0-0.8) 10^3/u L Baso # (Auto) (0.0-0.1) 10^3/u L Nucleated RBC % (a uto) % Nucleated RBCs # /100WBC Sodium (136-145) mmol/L Potassium (3.5-5.1) mmol/L Chloride (98-107) mmol/L Carbon Dioxide (22-29) mmol/L Anion Gap (5-19) BUN (6-20) mg/dL Creatinine (0.5-0.9) mg/dL GFR Calculation (90-130) mL/min Glucose (65-115) mg/dL Calculated Osmolal ity (285-295) mOsm/k g Lactate (0.5-2.2) mmol/L Calcium (8.5-10.5) mg/dL Total Bilirubin (0.15-1.2) mg/dL AST (0-32) U/L ALT (0-33) U/L Alkaline Phosphata se (35-105) IU/L Creatine Kinase (26-192) U/L C-Reactive Protein (0.0-4.9) mg/L Total Protein (6.6-8.7) g/dL Albumin (3.5-5.2) g/dL Globulin (1.3-4.6) g/dL HCG, Qual Negative (Negative) Urine Color (Yellow) Urine Appearance (CLEAR) Urine pH (5-7) Ur Specific Gravit y (1.005-1.030) Urine Protein (Negative) Urine Glucose (UA) (Normal) Urine Ketones (Negative) Urine Blood (Negative) Urine Nitrate (Negative) Urine Bilirubin (Negative) Urine Urobilinogen (Negative) mg/dL Ur Leukocyte Silvina ase (Negative) Salicylates (3-10) mg/dL Urine Opiates Scre en (Negative) ng/mL Acetaminophen (10-30) ug/mL Ur Barbiturates Sc reen (Negative) ng/mL Ur Phencyclidine S crn (Negative) ng/mL Ur Amphetamines Sc reen (Negative) ng/mL U Benzodiazepines Scrn (Negative) ng/mL Urine Cocaine Scre en (Negative) ng/mL U Marijuana (THC) Screen (Negative) ng/mL Ethyl Alcohol (0-10) mg/dL Influenza Type A A g Negative (Negative) Influenza Type B A g Negative (Negative) SARS-CoV-2 Ag (Rap id) Negative (Negative) 06/30/20 06/30/20 Range/Units 23:57 23:57 WBC (4.0-10.0) 10^3/ uL RBC (4.1-5.3) 10^6/u L Hgb (11.5-15.3) g/dL Hct (37.0-47.0) % MCV (81-99) fL MCH (28.0-34.0) pg MCHC (30.0-36.0) g/dL RDW (12.1-15.1) % Plt Count (130-400) 10^3/c mm MPV (7.4-10.4) fL Neut % (Auto) % Lymph % (Auto) % Hitchcock % (Auto) % Eos % (Auto) % Baso % (Auto) % Neut # (Auto) (1.8-7.7) 10^3/u L Lymph # (Auto) (0.8-4.8) 10^3/u L Hitchcock # (Auto) (0.2-0.9) 10^3/u L Eos # (Auto) (0.0-0.8) 10^3/u L Baso # (Auto) (0.0-0.1) 10^3/u L Nucleated RBC % (a uto) % Nucleated RBCs # /100WBC Sodium (136-145) mmol/L Potassium (3.5-5.1) mmol/L Chloride (98-107) mmol/L Carbon Dioxide (22-29) mmol/L Anion Gap (5-19) BUN (6-20) mg/dL Creatinine (0.5-0.9) mg/dL GFR Calculation (90-130) mL/min Glucose (65-115) mg/dL Calculated Osmolal ity (285-295) mOsm/k g Lactate (0.5-2.2) mmol/L Calcium (8.5-10.5) mg/dL Total Bilirubin (0.15-1.2) mg/dL AST (0-32) U/L ALT (0-33) U/L Alkaline Phosphata se (35-105) IU/L Creatine Kinase (26-192) U/L C-Reactive Protein (0.0-4.9) mg/L Total Protein (6.6-8.7) g/dL Albumin (3.5-5.2) g/dL Globulin (1.3-4.6) g/dL HCG, Qual (Negative) Urine Color Yellow (Yellow) Urine Appearance Clear (CLEAR) Urine pH 5 (5-7) Ur Specific Gravit y 1.010 (1.005-1.030) Urine Protein Neg (Negative) Urine Glucose (UA) Norm (Normal) Urine Ketones 1+ H (Negative) Urine Blood Neg (Negative) Urine Nitrate Negative (Negative) Urine Bilirubin Neg (Negative) Urine Urobilinogen Norm (Negative) mg/dL Ur Leukocyte Silvina ase Negative (Negative) Salicylates (3-10) mg/dL Urine Opiates Scre en Negative (Negative) ng/mL Acetaminophen (10-30) ug/mL Ur Barbiturates Sc reen Negative (Negative) ng/mL Ur Phencyclidine S crn Negative (Negative) ng/mL Ur Amphetamines Sc reen Positive H (Negative) ng/mL U Benzodiazepines Scrn Negative (Negative) ng/mL Urine Cocaine Scre en Negative (Negative) ng/mL U Marijuana (THC) Screen Negative (Negative) ng/mL Ethyl Alcohol (0-10) mg/dL Influenza Type A A g (Negative) Influenza Type B A g (Negative) SARS-CoV-2 Ag (Rap id) (Negative) Discharge Plan Discharge Patient Disposition: Admitted As Inpatient Clinical Impression: Substance abuse Sepsis Qualifiers: Sepsis type: sepsis due to unspecified organism Condition: Fair Coding Level of Care Code ED Shopper'S Aide for Justyna Fwd Exam Comprehensive
--- NOTE | 2020-06-30 23:05 | CTR_ITS ---
PROCEDURE INFORMATION: Exam: CT Head Without Contrast Exam date and time: 06/30/2020 11:06 PM Age: 40 years old Clinical indication: Pain; Headache; Additional info: Headache fever TECHNIQUE: Imaging protocol: Computed tomography of the head without contrast. Radiation optimization: All CT scans at this facility use at least one of these dose optimization techniques: automated exposure control; mA and/or kV adjustment per patient size (includes targeted exams where dose is matched to clinical indication); or iterative reconstruction. COMPARISON: No relevant prior studies available. RADIATION DOSE METRICS: Total DLP (mGy-cm): 849.61 FINDINGS: Brain: No acute infarct or hemorrhage. Cerebral ventricles: No ventriculomegaly. Bones/joints: No calvarial or skull base fracture. Paranasal sinuses: There is mucosal thickening in the paranasal sinuses with an air-fluid level in a single left ethmoid air cell. Mastoid air cells: Visualized mastoid air cells are clear. Soft tissues: Unremarkable. CT/CT head wo con* 03710 IMPRESSION: 1. No calvarial or skull base fracture. 2. No acute infarct or hemorrhage. 3. Mucosal thickening in in the paranasal sinuses with an air-fluid level in a single ethmoid air cell, suspicious for acute sinusitis. Radiation Dose CTDIVOL = (mGy): DLP = 849.61 (mGy-cm)
[2020-07-01] VITALS (47 sets, daily range): BP systolic 93–123; BP diastolic 53–85; PULSE 110–132; RESP 18–53; TEMP 36.8–39.7; O2SAT 85–97
[2020-07-01 00:09] LABS: Add Urine Microscopic? NO; Charge for UA Resulting for Rev
[2020-07-01 00:10] LABS: Bilirubin Urine Neg (Negative); Blood Urine Neg (Negative); Glucose Urine UA Norm (Normal); Ketones Urine 1+ (Negative); Leukocyte Esterase Urine Negative (Negative); Nitrate Urine Negative (Negative); Protein Urine Neg (Negative); Urine Appearance Clear (CLEAR); Urine Color Yellow (Yellow); Urobilinogen Urine Norm (Negative); pH Urine 5 (5-7)
[2020-07-01 00:19] LABS: Amphetamines Screen Urine Positive (Negative); Barbiturates Screen Urine Negative (Negative); Benzodiazepines Screen Urine Negative (Negative); Cocaine Screen Urine Negative (Negative); Opiate Screen Urine Negative (Negative); PCP Screen Urine Negative (Negative); THC Screen Urine Negative (Negative)
--- NOTE | 2020-07-01 01:20 | PM.HP ---
Providers/Chief Complaint Chief Complaint: fever and general body ache History of Present Illness Frances Parr is a 40 year old female who does not have significant past medical history presented today after ingesting methamphetamine. Patient is stating that she was at [employer] store when she found methamphetamine around candies which she ingested and soon after that she started experiencing headache, nausea, vomiting and chills, called EMS herself. She was very agitated and combative however required anxiolytics and sedatives which calmed her down. On arrival her heart rate was 150, temperature 103, leukocytosis. Blood pressure soft, she has required fluid resuscitation. Her behavior improved heart rate at the time of my evaluation 120s sinus tachycardia, systolic blood pressure 97/59 however she has cuff size 11 which will be changed to 10, CRP 65 CK 330, U tox positive for amphetamines CT head chest x-ray unremarkable EKG showing sinus tachycardia short W[place] interval no QTC prolongation she is denying previous history of IV drug abuse, she smokes 1 pack a day drinks alcohol occasionally. Her is currently admitted in neuropsychiatric unit. On review of previous record, she had dental abscess that was diagnosed 03/15 she has been given clindamycin, she has dental caries never saw a dentist afterwards, she was seen multiple times in the ER last year with fever, chills body aches. Review of Systems Const: Reports: fever(s), chills, body aches and fatigue Eyes: Denies: change in vision ENMT: Reports: oral sores, bleeding gums and dental pain; Denies: throat pain Card: Denies: chest pain Resp: Denies: dyspnea GI: Reports: nausea and vomiting; Denies: abdominal pain : Denies: flank pain Musc: Denies: neck pain Skin/Breast: Denies: rash Neuro: Reports: headache(s) Psych: Denies: anxiety Endo: Denies: polyuria Darrius/Lymph: Denies: easy bruising All/Imm: Denies: urticaria Medications/Allergies Home Medications Medication Instructions Recorded Confirmed Last Taken Type albuterol sulfate [Ventolin HFA] 2 puff INHALATION Q4H PRN #18 gm 12/06/19 Unknown Rx benzonatate 200 mg PO TID PRN #20 cap 12/06/19 Unknown Rx Allergies Allergy/AdvReac Type Severity Reaction Status Date / Time aspirin Allergy Unknown Verified 06/30/20 21:27 codeine Allergy Unknown Verified 06/30/20 21:27 ibuprofen Allergy Unknown Verified 06/30/20 21:27 penicillin G Allergy ALGY-Rash Verified 06/30/20 21:27 Sulfa (Sulfonamide Allergy ALGY-Rash Verified 06/30/20 21:27 Antibiotics) PFSH Acute PFSH: Medical History (Updated 07/01/20 @ 01:59 by Gina Lambert MD) Dental caries No pertinent past medical history Surgical History (Updated 07/01/20 @ 01:59 by Gina Lambert MD) H/O: hysterectomy Family History (Updated 07/01/20 @ 02:00 by Gina Lambert MD) Denies family history of CAD (coronary artery disease) Cancer Social History (Updated 07/01/20 @ 02:00 by Gina Lambert MD) Smoking and tobacco status: current every day smoker cigarettes [ Other cigarette details: 1 pack/day ] Alcohol intake: current Alcohol intake frequency: few times a week Substance/Drug Use: current Substance/Drug use type: Methamphetamine Household members: spouse Vitals/I&O/Wt Last Vital Signs Temp 99.2 F 06/30/20 23:38 Pulse 116 H 07/01/20 01:15 Resp 21 H 07/01/20 01:15 BP 98/53 07/01/20 01:15 Pulse Ox 92 07/01/20 01:15 06/30/20 06/30/20 07/01/20 14:59 22:59 06:59 Intake Total 1999 Balance 1999 Weight last 48 hrs Weight 56.699 kg Physical Exam Narrative: EXAM NARRATIVE: Young female Was resting peacefully when I entered the room However when I woke her up, she was emotionally labile was asking about her and wanted to meet him S1, S2 sinus tachycardia No murmur appreciated Flushed skin, prominent goosebumps, patient is shaking complaining of chills, warm to touch Abdomen soft Lower extremity no edema gangrene ulcer Skin tattoos noted Dental caries, poor dental hygiene Awake alert oriented x3 emotionally labile No signs of meningitis Data : 06/30/20 21:35 06/30/20 21:35 Micro: Microbiology 06/30/20 23:44 Blood Culture - Preliminary Blood SPECIMEN COLLECTED 06/30/20 23:42 Blood Culture - Preliminary Blood SPECIMEN COLLECTED A&P Assessment and plan (1) Sepsis: Status: Acute Qualifiers: Sepsis type: sepsis due to unspecified organism (2) Substance abuse: Status: Acute Additional A&P Information Sepsis Criteria met with fever, tachypnea, tachycardia, leukocytosis lactic acid 6.7 CPK [birth year]19[birth year] No rhabdomyolysis Rule out infective endocarditis, she has dental caries, questionable history of IV drug abuse, currently endorsing to ingestion of methamphetamine Alcohol level undetectable Started broad-spectrum antibiotics no signs of meningitis Blood pressure is soft however cuff size 11 will change cuff size, continue on normal saline fluid resuscitation Requested CRP, ESR, D-dimer, Covid antigen negative, flu negative, chest x-ray unremarkable CT head unremarkable UA unremarkable Blood cultures obtained, requested echo in the morning Suspicion for infectious etiology high secondary to her dental caries, polysubstance abuse however methamphetamine toxicity can present with similar presentation as well, no myoclonus on clinical exam Will monitor in ICU for now Substance abuse Methamphetamine positive U tox Would use Ativan on as needed basis for agitation Continue fluid resuscitation Full code Cardiac diet DVT prophylaxis Lovenox Attestations Medical Necessity Statement*: Anticipating stay in the hospital cross more than 2 midnights for sepsis management, polysubstance abuse, rule out endocarditis Time Spent in Patient Care: 40mins Coding Level of Care Code Acute Scroll Assembler for Justyna Fernandez Diagnoses Sepsis A41.9 Sepsis type: sepsis due to unspecified organism Substance abuse F19.10
[2020-07-01] MEDS: vancomycin 1,000 MG in sodium chloride 0.9% 250 ML 250 MG IV ×2 (01:44→13:13)
[2020-07-01 02:03] LABS: Procalcitonin 0.38 ng/mL (0-0.5)
[2020-07-01] MEDS: acetaminophen 500 mg Tablet PO ×3 (02:53→13:13)
[2020-07-01] MEDS: sodium chloride 0.9% 1,000 ML 75 ML IV ×3 (02:53→15:36)
[2020-07-01] MEDS: LORazepam 0.5 mg Tablet PO (02:55)
[2020-07-01] MEDS: enoxaparin 40 mg/0.4 mL Syringe SUBCUT (02:55)
[2020-07-01] MEDS: aztreonam 2,000 MG in sodium chloride 0.9% (plus) 100 ML 200 MG IV (02:59)
--- NOTE | 2020-07-01 03:16 | PC.NURSE ---
Arrived from ED, transferred self to bed, AO x3, denies SOB, temp 101.3 oral PRN Tylenol administered per order and room cooled, no complaints at this time other than feeling chilled, supine 30 degrees call light within reach
[2020-07-01 03:35] LABS: Erythrocyte Sedimentation Rate 19 mm/hr (0-15)
[2020-07-01] MEDS: metroNIDAZOLE IV 500 MG/100 ML PREMIX 100 MG IV (03:49)
--- NOTE | 2020-07-01 04:42 | PC.NURSE ---
Rectal temp 103.5, groin and auxiliary iced, fan placed on patient, PO tylenol already administered, Dr. Lambert notified no N.O. at this time
[2020-07-01 04:56] LABS: Basophils % 0.3 %; Hematocrit 41.6 % (37.0-47.0); Hemoglobin 13.9 g/dL (11.5-15.3); Lymphocytes # 2.2 10^3/uL (0.8-4.8); Lymphocytes % 18.8 %; Mean Corpuscular HGB Conc 33.4 g/dL (30.0-36.0); Mean Corpuscular Hemoglobin 32.7 pg (28.0-34.0); Mean Corpuscular Volume 97.9 fL (81-99); Mean Platelet Volume 11.2 fL (7.4-10.4); Monocytes # 0.6 10^3/uL (0.2-0.9); Monocytes % 5.1 %; Neutrophils # 8.81 10^3/uL (1.8-7.7); Neutrophils % 75.6 %; Nucleated Red Blood Cells % 0 %; Platelet Count 199 10^3/cmm (130-400); Red Blood Count 4.25 10^6/uL (4.1-5.3); Red Cell Distribution Width 13.6 % (12.1-15.1); White Blood Count 11.7 10^3/uL (4.0-10.0)
[2020-07-01 05:10] LABS: Anion Gap 14.1 (5-19); Blood Urea Nitrogen 9 mg/dL (6-20); Calcium 8.2 mg/dL (8.5-10.5); Carbon Dioxide 23 mmol/L (22-29); Chloride 103 mmol/L (98-107); Creatinine Clr Calc Pharmacy 88.3507; Glomerular Filtration Rate 93.6 mL/min (90-130); Glucose 125 mg/dL (65-115); Osmolality Calculated 282 mOsm/kg (285-295); Potassium 4.1 mmol/L (3.5-5.1); Sodium 136 mmol/L (136-145)
[2020-07-01 05:15] LABS: Creatine Phosphokinase 329 U/L (26-192)
[2020-07-01 05:21] LABS: D Dimer 0.65 ug/mIFEU (0-0.59)
--- NOTE | 2020-07-01 06:21 | PC.NURSE ---
temp came down to 102.7 rectal, now back up to 103.1, no n.o. at this time after notifying HCP at first 103.5 temp
--- NOTE | 2020-07-01 08:31 | ECG_ITS ---
[facility] Test Date: 2020-07-01 Pat Name: Frances Parr Department: Room: [facility] Gender: Female [employer] Administrator: : 1980 Requested By: Merlin Garcia Order Number: [id number] Trisha MD: Zuly Doty M.D. Measurements Intervals [place] Rate: 118 P: 56 MA: 119 QRS: 35 QRSD: 86 T: 45 QT: 299 QTc: 419 Interpretive Statements SINUS TACHYCARDIA WITH SHORT MA INTERVAL WITH OCCASIONAL SUPRAVENTRICULAR PREMATURE COMPLEXES POSSIBLE RIGHT VENTRICULAR CONDUCTION DELAY [RSR (QR) IN V1/V2] ABNORMAL RHYTHM ECG Compared to ECG 06/30/2020 21:55:43 No significant changes Electronically Signed On 07-02-2020 12:08:39 CDT by Zuly Doty M.D. [id number]
[2020-07-01] MEDS: sennosides-docusate Tablet 1 TAB PO (09:11)
[2020-07-01] MEDS: thiamine 100 mg Tablet PO (09:11)
[2020-07-01] MEDS: folic acid 1 mg Tablet PO (09:11)
[2020-07-01] MEDS: LORazepam 2 mg/mL INJ 1 mL 1 MG IVP (09:12)
--- NOTE | 2020-07-01 10:31 | ECG_ITS ---
[facility] Test Date: 2020-07-01 Pat Name: Frances Parr Department: Room: [facility] Gender: Female Musician Instrumental: : 1980 Requested By: Merlin Garcia Order Number: [id number] Rico MD: Zuly Doty M.D. Measurements Intervals [place] Rate: 122 P: 64 NC: 132 QRS: 45 QRSD: 82 T: 50 QT: 305 QTc: 435 Interpretive Statements SINUS TACHYCARDIA POSSIBLE RIGHT VENTRICULAR CONDUCTION DELAY [RSR (QR) IN V1/V2] ABNORMAL RHYTHM ECG Compared to ECG 07/01/2020 08:47:00 Short NC interval no longer present Electronically Signed On 07-02-2020 12:20:09 CDT by Zuly Doty M.D. [id number]
[2020-07-01 10:33] LABS: Basophils % 0.2 %; Hematocrit 39.2 % (37.0-47.0); Hemoglobin 13.3 g/dL (11.5-15.3); Lymphocytes # 1.8 10^3/uL (0.8-4.8); Lymphocytes % 13.1 %; Mean Corpuscular HGB Conc 33.9 g/dL (30.0-36.0); Mean Corpuscular Volume 97.3 fL (81-99); Mean Platelet Volume 10.3 fL (7.4-10.4); Monocytes # 1.3 10^3/uL (0.2-0.9); Monocytes % 9.4 %; Neutrophils % 76.6 %; Nucleated Red Blood Cells % 0 %; Platelet Count 165 10^3/cmm (130-400); Red Blood Count 4.03 10^6/uL (4.1-5.3); Red Cell Distribution Width 13.4 % (12.1-15.1); White Blood Count 13.3 10^3/uL (4.0-10.0)
[2020-07-01 10:45] LABS: Alanine Aminotransferase 65 U/L (0-33); Albumin Level 3.4 g/dL (3.5-5.2); Alkaline Phosphatase 58 IU/L (35-105); Anion Gap 11.5 (5-19); Aspartate Amino Transferase 39 U/L (0-32); Blood Urea Nitrogen 7 mg/dL (6-20); Calcium 7.7 mg/dL (8.5-10.5); Carbon Dioxide 23 mmol/L (22-29); Chloride 102 mmol/L (98-107); Creatine Phosphokinase 296 U/L (26-192); Globulin 3.2 g/dL (1.3-4.6); Glomerular Filtration Rate 138.1 mL/min (90-130); Glucose 115 mg/dL (65-115); Osmolality Calculated 275 mOsm/kg (285-295); Phosphorus 1.7 mg/dL (2.5-4.5); Potassium 3.5 mmol/L (3.5-5.1); Sodium 133 mmol/L (136-145); Total Bilirubin 0.2 mg/dL (0.15-1.2); Total Protein 6.6 g/dL (6.6-8.7)
[2020-07-01 11:00] LABS: Troponin(5th) Baseline 14 ng/L (0-10)
[2020-07-01 11:26] LABS: Thyroid Stimulating Hormone 0.54 uIU/mL (0.27-4.20)
--- NOTE | 2020-07-01 11:52 | P.PN_ITS ---
Subjective Subjective: Interval history: Patient was examined this morning, she is quite teary, she tells me that she wants to see her currently who is in the neuropsychiatric unit, denies any chest pain, denies any palpitations, but tells me that she is feeling unwell, she tells me that she found a bag of what she thinks is crystal meth, she used half of it, is vague and how much she used, but she tells me she swallowed it, she has not used crystal meth in many years, denies any other IV drug use, and any other drug use, denies any needle sticks, she tells that she felt unwell after, denies a history of endocarditis in the past Vitals/I&O/Wt Last Vital Signs Temp 98.3 F 07/01/20 09:00 Pulse 123 H 07/01/20 09:00 Resp 27 H 07/01/20 09:00 BP 109/80 07/01/20 09:00 Pulse Ox 94 07/01/20 09:00 06/30/20 07/01/20 07/01/20 22:59 06:59 14:59 Intake Total 2250 / 2250 Output Total 350 / 350 Balance 1900 / 1900 Weight last 48 hrs Weight 54.885 kg Weight 56.699 kg Physical Exam Const: COMMON NORMALS: no acute distress GENERAL APPEARANCE: anxious NUTRITIONAL APPEARANCE: thin ORIENTATION/CONSCIOUSNESS: Yes awake, Yes oriented to person, Yes oriented to place and Yes oriented to time Neck/C-Spine: COMMON NORMALS: no JVD Chest: COMMONS NORMALS: normal inspection of the chest Resp: COMMON NORMALS: normal respiratory effort, No retractions, No use of accessory muscles and clear to auscultation bilaterally AUSCULTATION: clear to auscultation bilaterally Cardio: COMMON NORMALS: no JVD, regular rhythm, S1 normal heart sound present and S2 normal heart sound present RATE: tachycardic RHYTHM: regular rhythm HEART SOUNDS: S1 normal heart sound present and S2 normal heart sound present GI: COMMON NORMALS: Normal to inspection, nondistended, normoactive bowel soun ds present, Soft to palpation, non-tender and No hepatosplenomegaly present PALPATION: Yes Soft to palpation and Yes No hepatosplenomegaly present Extremity: COMMON NORMALS: no calf tenderness and no pedal edema Neuro: SENSORIUM/ORIENTATION: Yes oriented to person, Yes oriented to place and Yes oriented to time Data : 07/01/20 10:07 07/01/20 10:07 Micro: Microbiology 06/30/20 23:44 Blood Culture - Preliminary Blood SPECIMEN COLLECTED 06/30/20 23:42 Blood Culture - Preliminary Blood SPECIMEN COLLECTED A&P Assessment and plan (1) Methamphetamine intoxication: -Fevers, tachycardia, agitation, elevated CPK, elevated WBC, transaminitis, likely secondary to methamphetamine intoxication -We will have to closely monitor for hyperthermia, aggressively manage fever through cooling measures, Tylenol, Ativan -Manage agitation consistently, Ativan -Monitor hemodynamics, monitor telemetry, as she has a risk of cardiac arrhythmias -For now sinus tachycardia continue to monitor, will consider Cardizem -Continue fluid resuscitation -Monitor for seizures, monitor for agitation -Monitor urine output, monitor CPK for rhabdo -Monitor withdrawal -Monitor for tremors, myoclonus -Elimination half-life is 24 hours Status: Acute (2) Sepsis: -Given fevers, tachycardia, leukocytosis, elevated lactic acid there is concerns for sepsis -No evidence of UTI -No evidence for pneumonia -No headache, no blurry vision, no neck stiffness no significant concerns for meningitis -Given her history of drug use, there is concerns for endocarditis, does have dental caries, concerns for IV drug use although patient denies -Continue broad-spectrum antibiotics vancomycin, Primaxin -Follow blood cultures, monitor for fevers -Ordered cardiac echocardiogram, if patient's symptoms persist beyond 24 hours then will consider transesophageal echocardiogram Status: Acute Qualifiers: Sepsis type: sepsis due to unspecified organism (3) Substance abuse: Status: Acute Additional A&P Information Full code Cardiac diet DVT prophylaxis Lovenox Attestations Medical Necessity Statement*: Patient requires hospitalization, inpatient, ICU, greater than 2 midnights, for methamphetamine intoxication, sepsis concerning for possible endocarditis, critical care time spent over 45 minutes Coding Level of Care Code Acute Imaging Specialist for Justyna Fernandez Diagnoses Methamphetamine intoxication F15.929 Sepsis A41.9 Sepsis type: sepsis due to unspecified organism Substance abuse F19.10
[2020-07-01] MEDS: phosphorus 250 mg Tablet PO (13:13)
--- NOTE | 2020-07-01 17:34 | PC.NURSE ---
Pt leaving AMA Pt's spouse Kimani discharged from the [facility] and is now at bedside. Pt has become more weepy as the afternoon has progressed. Pt has been given meds as scheduled along with her prn meds for anxiety. Pt's spouse has been updated and knows the pt's critical status. Pt's mother also has been updated and switched out with pt's to be with the pt for a short time. -Pt's has continually been at the nurse's station with concern that his is wanting to leave and at one point stopped a physician who was speaking with another nurse. -This nurse has many times reinforced how necessary it is for the pt to continue to receive medical attention. Pt stated, I can go to the river and cool my fever down. 1700: pt's came to the desk and said pt was ready for her paper work to leave. This nurse went to pt and again went over the risks of her leaving without a doctor's okay. Dr. Garcia notified. 170: Pt signed AMA form. Pt's monzon has been removed and IV has been pulled. Pt's helped to her to get dressed. All of her belongings are in their possession. Pt taken to Surgery entrance where she had a car waiting.
--- NOTE | 2020-07-26 13:53 | PM.DCS ---
Discharge Providers Date of Admission: 07/01/20 01:26 Date of Discharge: July 26, 2020 Attending Provider at Admission: Gina Lambert MD Attending Provider at Discharge: Merlin Garcia MD Diagnoses at Discharge Discharge Diagnosis (1) Methamphetamine intoxication: Status: Acute (2) Sepsis: Status: Acute Qualifiers: Sepsis type: sepsis due to unspecified organism (3) Substance abuse: Status: Acute Reason for Visit Reason for Visit: fever and general body ache Hospital Course Hospital Course This is a 40-year-old female with no significant past medical history who presents to [facility] for concerns of methamphetamine intoxications, fever, tachycardia, agitation. Patient was admitted to [facility] for methamphetamine intoxication, and concerns for sepsis and concerns for rhabdomyolysis. She was admitted to [facility], she received close monitoring the ICU, received fluids, broad-spectrum antibiotic therapy, poison control was called, echocardiogram was ordered due to concerns for IV drug abuse and endocarditis as a potential source for her fevers. However patient left AGAINST MEDICAL ADVICE from the intensive care unit. Patient was advised of the risks of leaving AGAINST MEDICAL ADVICE including but not limited to increased risk of morbidity and mortality, sepsis, septic shock, high risk of , she voiced understanding, all questions answered, left AGAINST MEDICAL ADVICE. Discharge Data Data Completed and Pending: Completed Studies During Hospitalization Category Date Time Status CT head wo con* 7 0450 Stat Cat Scan 06/30/20 23:05 Completed XR chest 1V marylu ble [id number] Urgent Exams 06/30/20 21:43 Completed Vitals: Last Vital Signs Temp 102.6 F H 07/01/20 17:06 Pulse 110 H 07/01/20 17:06 Resp 25 H 07/01/20 17:06 BP 96/65 07/01/20 17:06 Pulse Ox 96 07/01/20 17:06 Discharge Plan Discharge Patient Disposition: Left Against Medical Advice Condition: Fair Prescriptions: No Action Tylenol Extra Strength 500 mg Tablet 1,000 mg PO PRN RF: 0 Tessalon Perles 100 mg capsule 200 mg PO TID PRN (Reason: cough) Qty: 60 RF: 0 Discharge Attestations Time Spent in Discharge Care*: less than 30 min Quality Metrics Clinical Quality Measures During this hospital stay, did patient experience: None Coding Level of Care Code Acute Chg FW DC note Diagnoses Methamphetamine intoxication F15.929 Sepsis A41.9 Sepsis type: sepsis due to unspecified organism Substance abuse F19.10
== END 2020-07-01 18:00 | disposition left against medical advice (07) | DRG 872 ==
LOC: ER 07-01 01:35 → ICU 07-01 01:52
PROVIDERS: Admitting Provider Internal Medicine; Emergency Provider Emergency Medicine; Visit Provider Family Medicine
DX: A41.9 Sepsis, unspecified organism (principal); M62.82 Rhabdomyolysis; F15.929 Other stimulant use, unspecified with intoxication, unspecified; F17.210 Nicotine dependence, cigarettes, uncomplicated; K02.9 Dental caries, unspecified; Z53.29 Procedure and treatment not carried out because of patient's decision for other reasons
CPT/HCPCS: 36415; 70450; 71045; 80048; 80053; 80306; 80307; 81003; 82550; 83605; 83735; 84100; 84145; 84443; 84484; 84703; 85025; 85378; 85651; 86140; 87040; 87086; 87426; 87804; 93005; 96365; 96367; 96372; 96375; 99285; J0743; J1650; J2060; J2405; J3370; J3490; J7030; J7050; S0030

== ENCOUNTER 2020-07-02 09:57 | Emergency (ER) | payer SELFPAY ==
--- NOTE | 2020-07-02 | USCV_ITS ---
Transthoracic Echo Frances Parr Age: 40 Gender: F : 1980 Exam Date: 07/02/2020 11:10 Ordering Phys: Chelo Cote DO Technologist: BUBBA Exam Location: [facility] Indication: FEVER BP: 110 / 76 HR: 94 Rhythm: Sinus Technical Quality: Adequate MEASUREMENTS (Male / Female) Normal Values 2D ECHO LV Diastolic Diameter PLAX 3.7 cm 4.2 - 5.9 / 3.9 - 5.3 cm LV Systolic Diameter PLAX 2.7 cm LV Chamber Size 3.7 cm IVS Diastolic Thickness 1.0 cm 0.6 - 1.0 / 0.6 - 0.9 cm IVS Systolic Thickness 1.0 cm LVPW Diastolic Thickness 0.7 cm 0.6 - 1.0 / 0.6 - 0.9 cm LVPW Systolic Thickness 1.1 cm RV Chamber Size 2.6 cm LVOT Diameter 1.8 cm LV Ejection Fraction 2D Teich 54.2 % LV Ejection Fraction MOD 2C 66.0 % LV Ejection Fraction 2C AL 65.7 % LA Diameter 2.7 cm LA Width 3.0 cm LA Height 4.0 cm RA Width 2.5 cm RA Height 3.4 cm Aorta at Sinotubular Diameter 2.1 cm M-MODE LV Diastolic Diameter MM 4.2 cm 4.2 - 5.9 / 3.9 - 5.3 cm LV Systolic Diameter MM 2.9 cm LV Ejection Fraction MM Teich 56.8 % IVS Diastolic Thickness MM 1.1 cm 0.6 - 1.0 / 0.6 - 0.9 cm IVS Systolic Thickness MM 1.1 cm LVPW Diastolic Thickness MM 0.8 cm 0.6 - 1.0 / 0.6 - 0.9 cm LVPW Systolic Thickness MM 1.1 cm RV Diastolic Diameter MM 1.5 cm Aortic Annulus Diameter 2.6 cm LA Ao Ratio MM 1.2 MV E Point Septal Separation 0.5 cm DOPPLER AV Peak Velocity 103.0 cm/s LVOT Peak Velocity 90.0 cm/s AV Area Cont Eq vti 2.1 cm squared AV Area Cont Eq pk 2.3 cm squared MV Area PHT 5.0 cm squared Mitral E to A Ratio 1.1 MV E' Velocity 43.0 cm/s Mitral E to MV E' Ratio 5.8 Mitral E to LV E' Lateral Ratio 4.8 Mitral E to LV E' Septal Ratio 7.3 TR Peak Velocity 153.0 cm/s TR Peak Gradient 9.4 mmHg TV Peak E Velocity 41.0 cm/s Right Atrial Pressure 3.0 mmHg Pulmonary Artery Systolic Pressu 12.4 mmHg PV Peak Velocity 64.0 cm/s RV Acceleration Time 0.1 s RV Ejection Time 0.2 s RV AcT/ET 0.5 FINDINGS Left Ventricle Normal left ventricular size, systolic function and wall thickness, with no regional wall motion abnormalities. Left ventricular ejection fraction is estimated at 63%. Normal diastolic function. Right Ventricle Normal right ventricular size and systolic function. Right ventricular systolic pressure 12.4 mmHg. Right Atrium Normal right atrial size. Right atrial pressure estimated at 3 mm Hg. Left Atrium Normal left atrial size. Mitral Valve Structurally normal mitral valve. No mitral valve stenosis. No mitral valve regurgitation. Aortic Valve Structurally normal trileaflet aortic valve. No aortic valve stenosis. No aortic valve regurgitation. Tricuspid Valve Structurally normal tricuspid valve. No tricuspid valve stenosis. Trace tricuspid valve regurgitation. Pulmonic Valve Structurally normal pulmonic valve. No pulmonary valve stenosis. Trace pulmonary valve regurgitation. Pericardium No pericardial effusion. Aorta Normal size aortic root and proximal ascending aorta. Normal sized inferior vena cava with normal respiratory variations. CONCLUSIONS 1. Normal left ventricular size, systolic function and wall thickness, with no regional wall motion abnormalities. Left ventricular ejection fraction is estimated at 63%. Normal diastolic function. 2. No significant valvular abnormality. 3. Normal pulmonary artery pressure. 4. No evidence of infective endocarditis based on this study. 5. No prior similar studies to compare. Zuly Doty MD (Electronically Signed) Final Date: 02 Jul 2020 12:02 S
--- NOTE | 2020-07-02 10:08 | XRR_ITS ---
PROCEDURE INFORMATION: Exam: XR Chest Exam date and time: 07/02/2020 10:27 AM Age: 40 years old Clinical indication: Fever TECHNIQUE: Imaging protocol: XR of the chest. Views: 1 view. COMPARISON: CR (CHEST, ) 06/30/2020 10:01 PM FINDINGS: Lungs: There is a patchy infiltrate in the right base consistent with a pneumonia. The left lung is clear. Pleural spaces: Unremarkable. No pleural effusion. No pneumothorax. Heart/Mediastinum: Unremarkable. No cardiomegaly. Bones/joints: Unremarkable. XR/XR chest 1V portable [id number] IMPRESSION: Right basilar pneumonia.
[2020-07-02 10:09] VITALS: BP 110/76; PULSE 110; RESP 18; O2SAT 97; BMI 23.6
--- NOTE | 2020-07-02 10:14 | W.ED.GENADLT ---
HPI - General Adult General: Chief complaint: General Medical Stated complaint: FEVER (YESTERDAY), HEADACHE, NAUSEA Time Seen by Provider: 07/02/20 10:04 Source: patient and family Mode of arrival: ambulatory Limitations: no limitations History of Present Illness: HPI narrative: Frances is a very nice 40-year-old female who comes in complaining of generalized weakness, fatigue and flulike symptoms. Patient recently admitted to the hospital for the same symptoms. It was believed that she may have ingested methamphetamines causing all of her symptoms. Please see the ER physicians note, admitting physicians H&P and the physician who rounded on her the next day for more details. Ultimately the patient and her significant other who is with her stated that the patient wanted to leave last night and left the hospital AGAINST MEDICAL ADVICE. At this time she states she still feels like she needs antibiotics. She does not want to come back into the hospital but wants me to give her antibiotics here and let her go. Since leaving the patient denies any illicit drug use. She denies any fevers. She states she just feels weak and tired and aches all over. She otherwise denies any complaints or concerns. Associated symptoms: Reports malaise; Deny chest pain, dyspnea, headache(s), nausea, rash, palpitations, syncope or vomiting Review of Systems Const: Reports: body aches, fatigue and malaise; Denies: fever(s) Eyes: Denies: change in vision or blurry vision ENMT: Denies: throat pain, hoarseness or swelling of lips/tongue Card: Denies: chest pain, palpitations, syncope, pre-syncope or dyspnea on exertion Resp: Denies: dyspnea, productive cough, non-productive cough, wheezing, change in phlegm color or hemoptysis GI: Denies: abdominal pain, nausea, vomiting or diarrhea : Denies: flank pain, dysuria, urinary frequency or urinary urgency Musc: Denies: neck pain, back pain or extremity pain Skin/Breast: Denies: rash or pruritus Neuro: Denies: headache(s), numbness in extremities, weakness in extremities or dizziness Darrius/Lymph: Denies: easy bruising, easy bleeding, petechiae or purpura All/Imm: Denies: urticaria or throat swelling PFSH ED PFSH: Medical History Dental caries No pertinent past medical history Surgical History H/O: hysterectomy Family History Denies family history of CAD (coronary artery disease) Cancer Social History Smoking and tobacco status: current every day smoker cigarettes [ Other cigarette details: 1 pack/day ] Alcohol intake: current Alcohol intake frequency: few times a week Household members: spouse Physical Exam Const: COMMON NORMALS: no acute distress, patient oriented x3, no limitations and alert GENERAL APPEARANCE: cooperative HENMT: COMMON NORMALS: normocephalic, atraumatic, external ears normal, EAC's normal and Normal external nose present HEAD & SCALP: normal to inspection, normocephalic and atraumatic FACE & SINUS: normal facial exam and face symmetric NOSE: Normal external nose present and Normal nares present EXTERNAL EAR: Yes external ears normal EXTERNAL AUDITORY CANAL: EAC's normal MOUTH: Normal oral and palatal mucosa present, lip normal and tongue normal Eye: COMMON NORMALS: Equal, round and reactive pupils present and conjunctivae normal GENERAL EYE: appearance normal, both eyes and all related structures ALIGNMENT: Yes alignment normal PERIORBITAL: periorbital findings normal EYELID: eyelids normal CONJUNCTIVA: Yes conjunctivae normal SCLERA: sclerae normal PUPIL: Yes Equal, round and reactive pupils present Neck/C-Spine: COMMON NORMALS: full ROM, no lymphadenopathy, supple, no meningeal signs and no JVD GENERAL: Yes normal visual inspection and Yes trachea midline Chest: COMMONS NORMALS: normal inspection of the chest and normal palpation of entire chest wall Resp: COMMON NORMALS: normal respiratory effort, No retractions, No use of accessory muscles and clear to auscultation bilaterally EFFORT & INSPECTION: Yes able to speak in complete sentences and Yes symmetric chest movement AUSCULTATION: clear to auscultation bilaterally, no crackles, no rales, no rhonchi and no wheezes Cardio: COMMON NORMALS: no JVD, regular rhythm, S1 normal heart sound present and S2 normal heart sound present RATE: tachycardic RHYTHM: regular rhythm HEART SOUNDS: S1 normal heart sound present, S2 normal heart sound present, no click, no gallops, no murmurs and no rubs GI: COMMON NORMALS: Soft to palpation and No hepatosplenomegaly present PALPATION: Yes Soft to palpation, No Tenderness to palpation present (GI), No Guarding due to palpation present (GI), No Rigid due to palpation, Yes No hepatosplenomegaly present, No Hernia present, No Palpable mass present and No Pulsatile mass present : COMMON NORMALS: Yes no CVA tenderness BLADDER/KIDNEY EXAM: Yes no CVA tenderness EXTERNAL FEMALE EXAM: No Hernia present Back/Pelvis: COMMON NORMALS: no CVA tenderness, thoracic and lumbar spine normal to inspection, no thoracic nor lumbar tenderness and thoraco-lumbar ROM normal Extremity: COMMON NORMALS: normal to inspection, full ROM, capillary refill normal, no joint enlargement, no clubbing, cyanosis or edema and no calf tenderness Neuro: COMMON NORMALS: patient oriented x3, CN's II-XII intact bilaterally, moves all extremities, no focal motor deficits and no sensory deficits noted SENSORIUM/ORIENTATION: Yes alert MENINGEAL SIGNS: Yes no meningeal signs SPEECH: speech normal Psych: COMMON NORMALS: mental status grossly normal, Normal thought process present, cooperative, normal affect, speech normal and activity/motor behavior normal SPEECH: Yes normal speech THOUGHT PROCESS: Normal thought process present Skin: COMMON NORMALS: no rashes or lesions noted, turgor normal, no jaundice, no petechiae and no mottling GENERAL SKIN EXAM: no rashes or lesions noted and turgor normal Procedures EJ/Peripheral Line Arm R: Time Out Performed: Yes Skin Cleansed in Sterile Fashion: Yes Size (gauge): 18 IV Secured and Dressing Applied: Yes Patient Tolerated Procedure: well and no complications Additional Comments: Ultrasound utilized throughout procedure. No complications. Course Vital Signs: Vital signs: Vital Signs Pulse Rate 110 H 07/02/20 10:09 Respiratory Rate 18 07/02/20 10:09 Blood Pressure 110/76 07/02/20 10:09 Pulse Oximetry 97 07/02/20 10:09 MDM - General Adult MDM Narrative: Medical decision making narrative: 1221 -patient is feeling better and is wanting to go home. I see no evidence of endocarditis. Her echo was verbally reported to me by Dr. Doty as normal. Specifically she said no evidence of vegetations or endocarditis. Patient is feeling better. Her labs are improved from when she was in the hospital. I will discharge her home on Omnicef and Zithromax. Lab Data: Attestation: I reviewed the patient's lab results. Labs: Lab Results 07/02/20 07/02/20 07/02/20 Range/Units 10:48 10:48 10:48 WBC 8.6 (4.0-10.0) 10^3/ uL RBC 3.84 L (4.1-5.3) 10^6/u L Hgb 12.4 (11.5-15.3) g/dL Hct 37.3 (37.0-47.0) % MCV 97.1 (81-99) fL MCH 32.3 (28.0-34.0) pg MCHC 33.2 (30.0-36.0) g/dL RDW 13.4 (12.1-15.1) % Plt Count 159 (130-400) 10^3/c mm MPV 10.5 H (7.4-10.4) fL Neut % (Auto) 66.7 % Lymph % (Auto) 21.6 % Blair % (Auto) 10.8 % Eos % (Auto) 0.1 % Baso % (Auto) 0.6 % Neut # (Auto) 5.72 (1.8-7.7) 10^3/u L Lymph # (Auto) 1.9 (0.8-4.8) 10^3/u L Blair # (Auto) 0.9 (0.2-0.9) 10^3/u L Eos # (Auto) 0.0 (0.0-0.8) 10^3/u L Baso # (Auto) 0.1 (0.0-0.1) 10^3/u L Nucleated RBC % (a uto) 0 % Nucleated RBCs # 0.0 /100WBC Sodium 139 (136-145) mmol/L Potassium 3.9 (3.5-5.1) mmol/L Chloride 103 (98-107) mmol/L Carbon Dioxide 27 (22-29) mmol/L Anion Gap 12.9 (5-19) BUN 10 (6-20) mg/dL Creatinine 0.5 (0.5-0.9) mg/dL GFR Calculation 138.1 H (90-130) mL/min Glucose 90 (65-115) mg/dL Calculated Osmolal ity 287 (285-295) mOsm/k g Lactic Acid (0.5-2.2) mmol/L Calcium 8.1 L (8.5-10.5) mg/dL Magnesium 2.1 (1.7-2.3) mg/dL Total Bilirubin 0.2 (0.15-1.2) mg/dL AST 45 H (0-32) U/L ALT 67 H (0-33) U/L Alkaline Phosphata se 58 (35-105) IU/L Creatine Kinase (26-192) U/L Total Protein 6.6 (6.6-8.7) g/dL Albumin 3.3 L (3.5-5.2) g/dL Globulin 3.3 (1.3-4.6) g/dL HCG, Qual Negative (Negative) Urine Color (Yellow) Urine Appearance (CLEAR) Urine pH (5-7) Ur Specific Gravit y (1.005-1.030) Urine Protein (Negative) Urine Glucose (UA) (Normal) Urine Ketones (Negative) Urine Blood (Negative) Urine Nitrate (Negative) Urine Bilirubin (Negative) Urine Urobilinogen (Negative) mg/dL Ur Leukocyte Silvina ase (Negative) Urine RBC (0-2) /hpf Urine WBC (0-5) /hpf Ur Squamous Epith Cells (0-5) /hpf Amorphous Sediment Urine Bacteria (NONE) /hpf Urine Opiates Scre en (Negative) ng/mL Ur Barbiturates Sc reen (Negative) ng/mL Ur Phencyclidine S crn (Negative) ng/mL Ur Amphetamines Sc reen (Negative) ng/mL U Benzodiazepines Scrn (Negative) ng/mL Urine Cocaine Scre en (Negative) ng/mL U Marijuana (THC) Screen (Negative) ng/mL 07/02/20 07/02/20 07/02/20 Range/Units 10:48 10:48 10:48 WBC (4.0-10.0) 10^3/ uL RBC (4.1-5.3) 10^6/u L Hgb (11.5-15.3) g/dL Hct (37.0-47.0) % MCV (81-99) fL MCH (28.0-34.0) pg MCHC (30.0-36.0) g/dL RDW (12.1-15.1) % Plt Count (130-400) 10^3/c mm MPV (7.4-10.4) fL Neut % (Auto) % Lymph % (Auto) % Blair % (Auto) % Eos % (Auto) % Baso % (Auto) % Neut # (Auto) (1.8-7.7) 10^3/u L Lymph # (Auto) (0.8-4.8) 10^3/u L Blair # (Auto) (0.2-0.9) 10^3/u L Eos # (Auto) (0.0-0.8) 10^3/u L Baso # (Auto) (0.0-0.1) 10^3/u L Nucleated RBC % (a uto) % Nucleated RBCs # /100WBC Sodium (136-145) mmol/L Potassium (3.5-5.1) mmol/L Chloride (98-107) mmol/L Carbon Dioxide (22-29) mmol/L Anion Gap (5-19) BUN (6-20) mg/dL Creatinine (0.5-0.9) mg/dL GFR Calculation (90-130) mL/min Glucose (65-115) mg/dL Calculated Osmolal ity (285-295) mOsm/k g Lactic Acid (0.5-2.2) mmol/L Calcium (8.5-10.5) mg/dL Magnesium (1.7-2.3) mg/dL Total Bilirubin (0.15-1.2) mg/dL AST (0-32) U/L ALT (0-33) U/L Alkaline Phosphata se (35-105) IU/L Creatine Kinase 185 (26-192) U/L Total Protein (6.6-8.7) g/dL Albumin (3.5-5.2) g/dL Globulin (1.3-4.6) g/dL HCG, Qual (Negative) Urine Color Yellow (Yellow) Urine Appearance Clear (CLEAR) Urine pH 7 (5-7) Ur Specific Gravit y 1.010 (1.005-1.030) Urine Protein Neg (Negative) Urine Glucose (UA) Norm (Normal) Urine Ketones Negative (Negative) Urine Blood Neg (Negative) Urine Nitrate Negative (Negative) Urine Bilirubin 1+ H (Negative) Urine Urobilinogen 1 H (Negative) mg/dL Ur Leukocyte Silvina ase Negative (Negative) Urine RBC None (0-2) /hpf Urine WBC 0-4 H (0-5) /hpf Ur Squamous Epith Cells 0-4 H (0-5) /hpf Amorphous Sediment Not Reportable Urine Bacteria Trace (NONE) /hpf Urine Opiates Scre en Negative (Negative) ng/mL Ur Barbiturates Sc reen Negative (Negative) ng/mL Ur Phencyclidine S crn Negative (Negative) ng/mL Ur Amphetamines Sc reen Positive H (Negative) ng/mL U Benzodiazepines Scrn Positive H (Negative) ng/mL Urine Cocaine Scre en Negative (Negative) ng/mL U Marijuana (THC) Screen Negative (Negative) ng/mL 07/02/20 Range/Units 11:00 WBC (4.0-10.0) 10^3/ uL RBC (4.1-5.3) 10^6/u L Hgb (11.5-15.3) g/dL Hct (37.0-47.0) % MCV (81-99) fL MCH (28.0-34.0) pg MCHC (30.0-36.0) g/dL RDW (12.1-15.1) % Plt Count (130-400) 10^3/c mm MPV (7.4-10.4) fL Neut % (Auto) % Lymph % (Auto) % Blair % (Auto) % Eos % (Auto) % Baso % (Auto) % Neut # (Auto) (1.8-7.7) 10^3/u L Lymph # (Auto) (0.8-4.8) 10^3/u L Blair # (Auto) (0.2-0.9) 10^3/u L Eos # (Auto) (0.0-0.8) 10^3/u L Baso # (Auto) (0.0-0.1) 10^3/u L Nucleated RBC % (a uto) % Nucleated RBCs # /100WBC Sodium (136-145) mmol/L Potassium (3.5-5.1) mmol/L Chloride (98-107) mmol/L Carbon Dioxide (22-29) mmol/L Anion Gap (5-19) BUN (6-20) mg/dL Creatinine (0.5-0.9) mg/dL GFR Calculation (90-130) mL/min Glucose (65-115) mg/dL Calculated Osmolal ity (285-295) mOsm/k g Lactic Acid 0.9 (0.5-2.2) mmol/L Calcium (8.5-10.5) mg/dL Magnesium (1.7-2.3) mg/dL Total Bilirubin (0.15-1.2) mg/dL AST (0-32) U/L ALT (0-33) U/L Alkaline Phosphata se (35-105) IU/L Creatine Kinase (26-192) U/L Total Protein (6.6-8.7) g/dL Albumin (3.5-5.2) g/dL Globulin (1.3-4.6) g/dL HCG, Qual (Negative) Urine Color (Yellow) Urine Appearance (CLEAR) Urine pH (5-7) Ur Specific Gravit y (1.005-1.030) Urine Protein (Negative) Urine Glucose (UA) (Normal) Urine Ketones (Negative) Urine Blood (Negative) Urine Nitrate (Negative) Urine Bilirubin (Negative) Urine Urobilinogen (Negative) mg/dL Ur Leukocyte Silvina ase (Negative) Urine RBC (0-2) /hpf Urine WBC (0-5) /hpf Ur Squamous Epith Cells (0-5) /hpf Amorphous Sediment Urine Bacteria (NONE) /hpf Urine Opiates Scre en (Negative) ng/mL Ur Barbiturates Sc reen (Negative) ng/mL Ur Phencyclidine S crn (Negative) ng/mL Ur Amphetamines Sc reen (Negative) ng/mL U Benzodiazepines Scrn (Negative) ng/mL Urine Cocaine Scre en (Negative) ng/mL U Marijuana (THC) Screen (Negative) ng/mL Imaging Data^: CXR: My impression: Probable right middle lobe infiltrate Discharge Plan Discharge Patient Disposition: Home Clinical Impression: Pneumonia Condition: Stable Prescriptions: New cefdinir 300 mg capsule 300 mg PO Q12H 10 Days Qty: 20 RF: 0 doxycycline hyclate 100 mg capsule 100 mg PO BID 10 Days Qty: 20 RF: 0 benzonatate [Tessalon Perles] 100 mg capsule 200 mg PO TID PRN (Reason: cough) Qty: 60 RF: 0 No Action Tylenol Extra Strength 500 mg Tablet 1,000 mg PO PRN RF: 0 Discharge Orders: Discharge ED (Routine); Ordered 07/02/20 Ordered By: Chelo Cote Referrals: Lory Fisher MD [Physician] - 1-3 days Discharge Diet: Usual diet Discharge Activity: Increase activity as tolerated Patient Instructions: Opioid Safety, Bacterial Pneumonia (ED) Activity Restrictions/Additional Instructions: Please return to the ER immediately for any of the signs or symptoms listed on your discharge instruction sheets, worsening/changing of your symptoms, you are not getting better as quickly as expected, or for ANY other cause or concerns. Return to the ER for chest pain, shortness of breath, uncontrolled fever, or for any other cause for concern and be certain to refill the prescriptions I have given you and take them to completion. Coding Level of Care Code ED Tumbling Machine Operator for Joshg Fwd Exam Comprehensive
[2020-07-02 11:10] LABS: HCG, Serum Qual Negative (Negative)
[2020-07-02 11:15] LABS: Alanine Aminotransferase 67 U/L (0-33); Albumin Level 3.3 g/dL (3.5-5.2); Alkaline Phosphatase 58 IU/L (35-105); Anion Gap 12.9 (5-19); Aspartate Amino Transferase 45 U/L (0-32); Blood Urea Nitrogen 10 mg/dL (6-20); Calcium 8.1 mg/dL (8.5-10.5); Carbon Dioxide 27 mmol/L (22-29); Chloride 103 mmol/L (98-107); Globulin 3.3 g/dL (1.3-4.6); Glomerular Filtration Rate 138.1 mL/min (90-130); Glucose 90 mg/dL (65-115); Magnesium 2.1 mg/dL (1.7-2.3); Osmolality Calculated 287 mOsm/kg (285-295); Potassium 3.9 mmol/L (3.5-5.1); Sodium 139 mmol/L (136-145); Total Bilirubin 0.2 mg/dL (0.15-1.2); Total Protein 6.6 g/dL (6.6-8.7)
[2020-07-02 11:16] LABS: Basophils # 0.1 10^3/uL (0.0-0.1); Basophils % 0.6 %; Eosinophils % 0.1 %; Hematocrit 37.3 % (37.0-47.0); Hemoglobin 12.4 g/dL (11.5-15.3); Lymphocytes # 1.9 10^3/uL (0.8-4.8); Lymphocytes % 21.6 %; Mean Corpuscular HGB Conc 33.2 g/dL (30.0-36.0); Mean Corpuscular Hemoglobin 32.3 pg (28.0-34.0); Mean Corpuscular Volume 97.1 fL (81-99); Mean Platelet Volume 10.5 fL (7.4-10.4); Monocytes # 0.9 10^3/uL (0.2-0.9); Monocytes % 10.8 %; Neutrophils # 5.72 10^3/uL (1.8-7.7); Neutrophils % 66.7 %; Nucleated Red Blood Cells % 0 %; Platelet Count 159 10^3/cmm (130-400); Red Blood Count 3.84 10^6/uL (4.1-5.3); Red Cell Distribution Width 13.4 % (12.1-15.1); White Blood Count 8.6 10^3/uL (4.0-10.0)
[2020-07-02 11:19] LABS: Lactic Sepsis W/Reflex 0.9 mmol/L (0.5-2.2)
[2020-07-02 11:26] LABS: Amphetamines Screen Urine Positive (Negative); Barbiturates Screen Urine Negative (Negative); Benzodiazepines Screen Urine Positive (Negative); Cocaine Screen Urine Negative (Negative); PCP Screen Urine Negative (Negative); THC Screen Urine Negative (Negative)
[2020-07-02 11:32] LABS: Add Urine Culture? No; Bacteria Urine TRACE /hpf; Bilirubin Urine 1+ (Negative); Blood Urine Neg (Negative); Glucose Urine UA Norm (Normal); Ketones Urine Negative (Negative); Leukocyte Esterase Urine Negative (Negative); Nitrate Urine Negative (Negative); Protein Urine Neg (Negative); Squamous Epithelial Cell Urine 0-4 /hpf (0-5); Urine Appearance Clear (CLEAR); Urine Color Yellow (Yellow); Urobilinogen Urine 1 mg/dL (Negative); WBC Urine 0-4 /hpf (0-5); pH Urine 7 (5-7)
[2020-07-02] MEDS: ondansetron 2 mg/ML SDV 2 mL 4 MG IVP (11:32)
[2020-07-02 11:33] LABS: Creatine Phosphokinase 185 U/L (26-192)
[2020-07-02] MEDS: cefTRIAXone 1,000 MG in sodium chloride 0.9% (plus) 50 ML 100 MG IV (11:33)
[2020-07-02] MEDS: acetaminophen 500 mg Tablet 1000 MG PO (11:35)
[2020-07-02] MEDS: sodium chloride 0.9% 1,000 ML 999 ML IV (11:37)
[2020-07-02 11:47] LABS: Opiate Screen Urine Negative (Negative)
[2020-07-02 11:54] LABS: Slide Review Slide Review Perform
[2020-07-02] MEDS: azithromycin 500 MG in sodium chloride 0.9% 250 ML 250 MG IV (12:18)
[2020-07-02 13:57] VITALS: BP 109/77; PULSE 101; RESP 18; TEMP 37.1; O2SAT 97
--- NOTE | 2020-07-03 10:09 | PC.RESP ---
SMOKING CESSATION INFORMATION SENT TO PATIENT.
== END 2020-07-02 14:22 | disposition home or self-care (01) ==
PROVIDERS: Emergency Provider Emergency Medicine
DX: J18.9 Pneumonia, unspecified organism (principal); F17.210 Nicotine dependence, cigarettes, uncomplicated
CPT/HCPCS: 36415; 71045; 80053; 80306; 81001; 82550; 83605; 83735; 84703; 85025; 87040; 93306; 96365; 96367; 96375; 99284; J0456; J0696; J2405; J7030; J7050